=== PATIENT | female | born 1950 | race African-American/Black ===

== ENCOUNTER 2017-08-23 17:01 | Observation (INO) | payer MEDICARE, MEDICAID ==
[~2017-08-23] VITALS: Ht 162.6 cm; Wt 111.0 kg
[~2017-08-23 17:01] MED LIST: AMLO10 PO; CLON.1 PO; DIOV80TA2 PO; MELO15TA2 PO; METO5TAB PO; MONT10TA2 PO; PARO20TA PO; PREM0.622 PO; ROSU20 PO; TEMA15; TOPR25TA2 PO
[2017-08-23 17:15] VITALS: BP 133/79; PULSE 76; RESP 19; TEMP 99.2
[2017-08-23] MEDS ORDERED: methylPREDNISolone SOD SUCC 125 MG/2 ML VIAL IV PUSH ONE (17:30)
[2017-08-23] MEDS ORDERED: SODIUM CHLORIDE 0.9% FLUSH 10 ML FLUSH IVF PRN (17:30)
[2017-08-23] MEDS ORDERED: RESP: ALBUTEROL 2.5 MG/IPRATROPIUM 0.5 MG NEB (SCH) INH ONE (17:30)
[2017-08-23] MEDS: RESP: ALBUTEROL 2.5 MG/3 ML NEB (SCH) INH (17:33)
[2017-08-23 17:34] VITALS: O2SAT 93
--- NOTE | 2017-08-23 17:54 | RADRPT ---
EXAM DATE/TIME: 08/23/2017 17:34 [facility] COMPARISON: No previous studies available for comparison. INDICATIONS : Short of breath. MEDICAL HISTORY : Diabetes mellitus type II. Hypertension SURGICAL HISTORY : None. ENCOUNTER: Initial ACUITY: 1 week PAIN SCORE: 0/10 LOCATION: Bilateral chest FINDINGS: A single view of the chest demonstrates the lungs to be symmetrically aerated without evidence of mas s, infiltrate or effusion. The heart is mildly enlarged. There is prominence of the central broncho pulmonary markings. Moderate tortuosity descending thoracic aorta.. Osseous structures are intact. CONCLUSION: No infiltrates seen. Cardiomegaly. Oscar Wagner MD on August 23, 2017 at 17:52 Board Certified Radiologist. This report was verified electronically.
[2017-08-23 18:34] VITALS: BP 133/79; PULSE 77; RESP 19; O2SAT 89
--- NOTE | 2017-08-23 18:40 | PD ---
HPI Chief Complaint: Respiratory Symptoms Time Seen by Provider: 17:18 Travel History International Travel<30 days: No Contact w/Intl Traveler<30days: No Traveled to known affect area: No History of Present Illness HPI 67 year-old female his hypertension, COPD, presents today with complaints of left sided facial swelling times one day. The patient has had previous angioedema from KVNG inhibitor's. She denies any difficulty swallowing. She does have wheezing and a cough. She reports her cough is productive with yellow and white phlegm. There is no reported fevers, chills. She has no new medications. She was seen initially outfront and rushed back because she had a sat in the high 80s. She was placed on 2 L nasal cannula which brought her O2 sat up into the 90s. The patient is still smoking cigarettes. She reports she' s sneaking them at times. PFSH Past Medical History Arthritis: Yes Asthma: Yes Autoimmune Disease: No Blood Disorders: No Anxiety: Yes Depression: Yes Heart Rhythm Problems: Yes Cancer: No Cardiovascular Problems: Yes Cerebral Palsy: No High Cholesterol: Yes Chemotherapy: No Chest Pain: Yes Congestive Heart Failure: Yes COPD: Yes Cerebrovascular Accident: No Diabetes: Yes Patient Takes Glucophage: No Diminished Hearing: No Endocrine: Yes Gastrointestinal Disorders: No GERD: Yes Glaucoma: No Genitourinary: No Headaches: No Hepatitis: No Hiatal Hernia: No Hypertension: Yes Immune Disorder: No Kidney Stones: No Musculoskeletal: No Neurologic: Yes Psychiatric: Yes Reproductive: No Respiratory: Yes Myocardial Infarction: No Radiation Therapy: No Renal Failure: No Seizures: No Sickle Cell Disease: No Sleep Apnea: No Thyroid Disease: No Ulcer: No Influenza Vaccination: No PNEUMOCCOCAL Vaccine (Year): 2 ?: Not Menopausal: Yes : 5 Para: 5 Past Surgical History Abdominal Surgery: Yes (POLYP REMOVAL) AICD: No Appendectomy: Yes Arteriovenous Shunt: No Cardiac Surgery: No Cholecystectomy: Yes Ear Surgery: No Endocrine Surgery: Yes (DIABETES ) Eye Surgery: Yes (BILAT CATARACT REMOVAL WITH RAHUL. IOL IMPLANTS) Genitourinary Surgery: No Gynecologic Surgery: Yes (HYSTERECTOMY) Hysterectomy: Yes Insulin Pump: No Joint Replacement: No Oral Surgery: No Pacemaker: No Thoracic Surgery: No Other Surgery: Yes Social History Alcohol Use: No Tobacco Use: Yes (1 ppd x 25 years) Substance Use: No Allergies-Medications (Allergen,Severity, Reaction): Coded Allergies: Sulfa (Sulfonamide Antibiotics) (Unverified Allergy, Severe, THROAT SWELLS , HIVES, 05/13/17) acetaminophen (Unverified Allergy, Severe, THROAT SWELLS, HIVES, 05/13/17) benazepril (Unverified Allergy, Severe, ? angioedema, THROAT SWELLS, ) captopril (Unverified Allergy, Severe, ? angioedema, THROAT SWELLS, ) clindamycin (Unverified Allergy, Severe, THROAT SWELLS, HIVES, 05/13/17) codeine (Unverified Allergy, Severe, THROAT SWELLS, HIVES, 05/13/17) enalaprilat (Unverified Allergy, Severe, ? angioedema, THROAT SWELLS, 05/13) fosinopril (Unverified Allergy, Severe, ? angioedema, THROAT SWELLS, ) iodine (Unverified Allergy, Severe, Itching, 05/13/17) lisinopril (Unverified Allergy, Severe, ? angioedema, THROAT SWELLS, ) penicillin G (Unverified Allergy, Severe, THROAT SWELLS, HIVES, 05/13/17) potassium iodide (Unverified Allergy, Severe, Itching, 05/13/17) povidone-iodine (Unverified Allergy, Severe, Itching, 05/13/17) propoxyphene (Unverified Allergy, Severe, THROAT SWELLS, HIVES, 05/13/17) quinapril (Unverified Allergy, Severe, ? angioedema, THROAT SWELLS, ) sodium iodide (Unverified Allergy, Severe, Itching, 05/13/17) sodium iodide (Unverified Allergy, Severe, Itching, 05/13/17) tomato (Unverified Allergy, Severe, THROAT SWELLS, HIVES, 05/13/17) Reported Meds & Prescriptions Reported Meds & Active Scripts Active Reported Restoril 15 mg (Temazepam) 15 Mg Cap 15 Mg .XX HSPRN SLEEP Paroxetine Hcl 20 Mg Tab 20 Mg PO DAILY Crestor (Rosuvastatin Calcium) 20 Mg Tab 20 Mg PO DAILY Premarin (Estrogens Conjugated) 0.625 Mg Tab 0.625 Mg PO DAILY Metoclopramide Hcl (Metoclopramide HCl) 5 Mg Tab 5 Mg PO TID Toprol Xl (Metoprolol Succinate) 25 Mg Tabcr 25 Mg PO DAILY Catapres 0.1 mg (Clonidine HCl) 0.1 Mg Tab 0.1 Mg PO BID Singulair (Montelukast Sodium) 10 Mg Tab 10 Mg PO HS Review of Systems Except as stated in HPI: all other systems reviewed are Neg General / Constitutional: No: Fever, Chills HENT: Positive: Other (reported left sided facial cheek swelling), No: Headaches, Lightheadedness, Neck Pain Cardiovascular: No: Chest Pain or Discomfort, Palpitations Respiratory: Positive: Cough, Shortness of Breath Gastrointestinal: No: Nausea, Vomiting Genitourinary: No: Frequency, Dysuria Musculoskeletal: No: Weakness, Pain Skin: No Rash, No Lesions Neurologic: No: Weakness, Dizziness, Headache Physical Exam Narrative GENERAL: Well-nourished, well-developed patient in mild respiratory discomfort. SKIN: Focused skin assessment warm/dry. HEAD: Normocephalic/atraumatic. ENT: On examination of the patient's face, there is questionable slight swelling to the left cheek. There is no redness or fluctuance. There is no tenderness to palpation. EYES: No scleral icterus. No injection or drainage. NECK: Supple, trachea midline. No JVD or lymphadenopathy. CARDIOVASCULAR: Regular rate and rhythm without murmurs, gallops, or rubs. RESPIRATORY: Diffuse expiratory wheezes bilaterally. No Rales appreciated. GASTROINTESTINAL: Abdomen soft, non-tender, nondistended. MUSCULOSKELETAL: No cyanosis, or edema. NEUROLOGICAL: Awake and alert. Cranial nerves II through XII intact. Motor grossly within normal limits. Five out of 5 muscle strength in all muscle groups. Normal speech. Data Data Last Documented VS Vital Signs Date Time Temp Pulse Resp B/P (MAP) Pulse Ox O2 Delivery O2 Flow Rate FiO2 08/23/17 22:15 96 Nasal Cannula 2.00 08/23/17 20:06 75 18 146/92 (110) 08/23/17 17:15 99.2 Orders Orders Complete Blood Count With Diff (08/23/17 17:18) Comprehensive Metabolic Panel (08/23/17 17:18) D-Dimer (08/23/17 17:18) Troponin I (08/23/17 17:18) Iv Access Insert/Monitor (08/23/17 17:18) Ecg Monitoring (08/23/17 17:18) Oximetry (08/23/17 17:18) Oxygen Administration (08/23/17 17:18) Chest, Single Ap (08/23/17 17:18) Sodium Chloride 0.9% Flush (Ns Flush) (08/23/17 17:30) Methylprednisolone So Succ Inj (Solumedr (08/23/17 17:30) Albuterol-Ipratropium Neb (Duoneb Neb) (08/23/17 17:30) Albuterol Neb (Albuterol Neb) (08/23/17 17:30) Vascular Access Team Consult/P PRN (08/23/17 17:51) Vascular Poc Ultrasound (08/23/17 ) Arterial Blood Gas (Abg) (08/23/17 18:54) Ventilation & Perfusion Scan (08/23/17 ) Albuterol-Ipratropium Neb (Duoneb Neb) (08/23/17 22:00) Levofloxacin 750 Mg Premix Inj (Levaquin (08/23/17 22:30) Admit Order (Ed Use Only) (08/23/17 ) Labs Laboratory Tests Test 08/23/17 18:25 08/23/17 19:20 White Blood Count 7.8 TH/MM3 Red Blood Count 4.76 MIL/MM3 Hemoglobin 15.2 GM/DL Hematocrit 46.2 % Mean Corpuscular Volume 97.0 FL Mean Corpuscular Hemoglobin 31.9 PG Mean Corpuscular Hemoglobin Concent 32.9 % Red Cell Distribution Width 14.7 % Platelet Count 136 TH/MM3 Mean Platelet Volume 9.1 FL Neutrophils (%) (Auto) 40.6 % Lymphocytes (%) (Auto) 32.5 % Monocytes (%) (Auto) 11.3 % Eosinophils (%) (Auto) 14.8 % Basophils (%) (Auto) 0.8 % Neutrophils # (Auto) 3.2 TH/MM3 Lymphocytes # (Auto) 2.5 TH/MM3 Monocytes # (Auto) 0.9 TH/MM3 Eosinophils # (Auto) 1.1 TH/MM3 Basophils # (Auto) 0.1 TH/MM3 CBC Comment DIFF FINAL Differential Comment D-Dimer Quantitative (PE/DVT) 0.82 MG/L FEU Blood Urea Nitrogen 19 MG/DL Creatinine 1.41 MG/DL Random Glucose 96 MG/DL Total Protein 7.4 GM/DL Albumin 3.4 GM/DL Calcium Level 9.6 MG/DL Alkaline Phosphatase 78 U/L Aspartate Amino Transf (AST/SGOT) 22 U/L Alanine Aminotransferase (ALT/SGPT) 21 U/L Total Bilirubin 0.3 MG/DL Sodium Level 140 MEQ/L Potassium Level 4.5 MEQ/L Chloride Level 101 MEQ/L Carbon Dioxide Level 36.9 MEQ/L Anion Gap 2 MEQ/L Estimat Glomerular Filtration Rate 45 ML/MIN Troponin I LESS THAN 0.02 NG/ML Blood Gas Puncture Site LT RADIAL Blood Gas Patient Temperature 37.0 Blood Gas HCO3 34 mmol/L Blood Gas Base Excess 8.7 mmol/L Blood Gas Oxygen Saturation 73 % Arterial Blood pH 7.38 Arterial Blood Partial Pressure CO2 59 mmHg Arterial Blood Partial Pressure O2 42 mmHG Arterial Blood Oxygen Content 15.1 Vol % Arterial Blood Carboxyhemoglobin 6.3 % Arterial Blood Methemoglobin 1.0 % Blood Gas Hemoglobin 14.9 G/DL Oxygen Delivery Device ROOM AIR Blood Gas Inspired Oxygen 21 % MDM Medical Decision Making Medical Screen Exam Complete: Yes Emergency Medical Condition: Yes Differential Diagnosis Angioedema versus allergic reaction versus COPD exacerbation versus pneumonia Narrative Course [age]-old female with history of COPD, hypertension, who presents today with complaints of left sided facial swelling. The patient also has shortness of breath. The patient was given 125 mg of Solu-Medrol. Nebulizer treatments 3 first with Atrovent was ordered. The patient's labs are pending at this time. The patient's been signed out to Dr. Aislinn Mcduffie, physician replacing me at change of shift. Disposition will be per Dr. Mcduffie. Diagnosis Primary Impression: Swelling of left side of face Additional Impression: COPD exacerbation Scripts Nebulizer (Nebulizer) 1 Mis Mis EA .ROUTE DIRECTED for Breathing Treatment, #1 0 Refills Prov: Nicola Marquez MD 08/24/17 Ipratropium-Albuterol Neb (Duoneb) 0.5-2.5 Mg/3 Ml Neb 1 NEBULE INH Q4HR NEB Y for SOB/WHEEZING for 30 Days, #120 NEBULE 0 Refills Prov: Nicola Marquez MD 08/24/17 [Budeson-Formot 160-4.5 Mg Inh] 60 PUFF AERO No Conflict Check 2 PUFF INH Q12HR for copd for 30 Days Prov: Nicola Marquez MD 08/24/17 Prednisone (21) 10 mg tab Dose Pack (Prednisone (21) 10 mg tab Dose Pack) 10 Mg Pack 10 MG PO DIRECTED for Inflammation, #1 DSPK 0 Refills Prov: Nicola Marquez MD 08/24/17 [guaiFENesin ER] 600 MG TABCR No Conflict Check 600 MG PO BID for 5 Days Prov: Nicola Marquez MD 08/24/17 Levofloxacin (Levaquin) 500 Mg Tablet 500 MG PO DAILY for Infection, #5 TAB Prov: Nicola Marquez MD 08/24/17 Azeem Jeff MD Aug 23, 2017 18:40
[2017-08-23 18:42] LABS: AUTOMATED NEUTROPHIL # 3.2 TH/MM3 (1.8-7.7); BASOPHIL # 0.1 TH/MM3 (0-0.2); BASOPHIL % 0.8 % (0.0-2.0); EOSINOPHIL # 1.1 TH/MM3 (0-0.4); EOSINOPHIL % 14.8 % (0.0-4.0); HEMATOCRIT 46.2 % (35.0-46.0); HEMO FLAGS DIFF FINAL; LYMPH % 32.5 % (9.0-44.0); LYMPHOCYTE # 2.5 TH/MM3 (1.0-4.8); MEAN CORPUSCULAR HEMOGLOBIN 31.9 PG (27.0-34.0); MEAN CORPUSCULAR HGB CONC 32.9 % (32.0-36.0); MONO % 11.3 % (0.0-8.0); NEUT % 40.6 % (16.0-70.0); PLATELET COUNT 136 TH/MM3 (150-450); RED BLOOD COUNT 4.76 MIL/MM3 (4.00-5.30); RED CELL DISTRIBUTION WIDTH 14.7 % (11.6-17.2); WHITE BLOOD COUNT 7.8 TH/MM3 (4.0-11.0)
[2017-08-23 19:06] LABS: ANION GAP 2 MEQ/L (5-15); AST (GOT) 22 U/L (15-37); BICARBONATE 36.9 MEQ/L (21.0-32.0); BLOOD UREA NITROGEN 19 MG/DL (7-18); CHLORIDE 101 MEQ/L (98-107); GLOMERULAR FILTRATION RATE 45 ML/MIN (>89); POTASSIUM 4.5 MEQ/L (3.5-5.1); SODIUM (NA) 140 MEQ/L (136-145)
[2017-08-23 19:07] LABS: ALT (GPT) 21 U/L (10-53)
[2017-08-23 19:11] LABS: ALKALINE PHOSPHATASE 78 U/L (45-117); TOTAL BILIRUBIN ADULT 0.3 MG/DL (0.2-1.0)
[2017-08-23 20:06] VITALS: BP 146/92; PULSE 75; RESP 18; O2SAT 93
[2017-08-23 20:22] LABS: BLOOD GAS BASE EXCESS 8.7 mmol/L (-2-2); BLOOD GAS CARBOXYHEMOGLOBIN 6.3 % (0-4); BLOOD GAS HCO3 34 mmol/L (22-26); BLOOD GAS O2 HGB SATURATION 73 % (90-100); BLOOD GAS OXYGEN CONTENT 15.1 Vol % (12.0-20.0); BLOOD GAS PCO2 59 mmHg (38-42); BLOOD GAS PO2 42 mmHG (61-120); BLOOD GAS TOTAL HGB 14.9 G/DL (12.0-16.0)
[2017-08-23 20:23] LABS: CRITICAL VALUE YES; DRAW SITE LT RADIAL; FIO2 21 %; NUMBER OF ARTERIAL PUNCTURES 1; OXYGEN DEVICE ROOM AIR; STAT YES; ULNAR PULSE PRESENT
--- NOTE | 2017-08-23 21:54 | RADRPT ---
EXAM DATE/TIME: 08/23/2017 20:51 [facility] COMPARISON: CHEST SINGLE AP, August 23, 2017, 17:34. INDICATIONS : Dyspnea and cough. DOSE: 1.1 mCi Tc99m DTPA 8.8 mCi Tc99m MAA MEDICAL HISTORY : Chronic obstructive pulmonary disease. Diabetes mellitus type 2. Hypertension. Smoker. SURGICAL HISTORY : Hysterectomy. Cholecystectomy. ENCOUNTER: Initial ACUITY: 1 day PAIN SCALE: 0/10 LOCATION: Bilateral chest TECHNIQUE: Following five minutes of tidal breathing of DTPA aerosol, planar images of the lungs were performed in eight projections. The patient was then injected with MAA, and eight-view perfusion scan was perf ormed. FINDINGS: The ventilation scan demonstrates prominent aerosol deposition in the upper and lower right bronchi a nd the central left bronchi. There is absent ventilation to the left lower lobe lateral basal segmen ts. Subsegmental areas of absent ventilation is seen laterally in left midlung and laterally in the right midlung. The perfusion lung scan demonstrates a homogenous pattern of uptake in both lungs. No segmental or s ubsegmental defects are seen. CONCLUSION: 1. No perfusion defects seen. Low probability pulmonary embolism. 2. Multiple ventilatory defects in both lungs. Oscar Wagner MD on August 23, 2017 at 21:50 Board Certified Radiologist. This report was verified electronically.
[2017-08-23 22:15] VITALS: O2SAT 96
[2017-08-23] MEDS: RESP: ALBUTEROL 2.5 MG/IPRATROPIUM 0.5 MG NEB (SCH) INH (22:15)
--- NOTE | 2017-08-23 22:17 | PD ---
Physical Exam Narrative Patient signed out to me by Dr. Jeff. Please see his documentation for complete details. Briefly, patient came in today because she noticed some swelling under her left eye and was concerned for an allergic reaction. She was found to have a low O2 saturation on arrival. She is a smoker and wears oxygen at home at night only. Exam shows no swelling to the face or mouth. Lungs have diffuse wheezing. Data Data Last Documented VS Vital Signs Date Time Temp Pulse Resp B/P (MAP) Pulse Ox O2 Delivery O2 Flow Rate FiO2 08/23/17 22:15 96 Nasal Cannula 2.00 08/23/17 20:06 75 18 146/92 (110) 08/23/17 17:15 99.2 Orders Orders Complete Blood Count With Diff (08/23/17 17:18) Comprehensive Metabolic Panel (08/23/17 17:18) D-Dimer (08/23/17 17:18) Troponin I (08/23/17 17:18) Iv Access Insert/Monitor (08/23/17 17:18) Ecg Monitoring (08/23/17 17:18) Oximetry (08/23/17 17:18) Oxygen Administration (08/23/17 17:18) Chest, Single Ap (08/23/17 17:18) Sodium Chloride 0.9% Flush (Ns Flush) (08/23/17 17:30) Methylprednisolone So Succ Inj (Solumedr (08/23/17 17:30) Albuterol-Ipratropium Neb (Duoneb Neb) (08/23/17 17:30) Albuterol Neb (Albuterol Neb) (08/23/17 17:30) Vascular Access Team Consult/P PRN (08/23/17 17:51) Vascular Poc Ultrasound (08/23/17 ) Arterial Blood Gas (Abg) (08/23/17 18:54) Ventilation & Perfusion Scan (08/23/17 ) Albuterol-Ipratropium Neb (Duoneb Neb) (08/23/17 22:00) Levofloxacin 750 Mg Premix Inj (Levaquin (08/23/17 22:30) Admit Order (Ed Use Only) (08/23/17 ) Labs Laboratory Tests Test 08/23/17 18:25 08/23/17 19:20 White Blood Count 7.8 TH/MM3 Red Blood Count 4.76 MIL/MM3 Hemoglobin 15.2 GM/DL Hematocrit 46.2 % Mean Corpuscular Volume 97.0 FL Mean Corpuscular Hemoglobin 31.9 PG Mean Corpuscular Hemoglobin Concent 32.9 % Red Cell Distribution Width 14.7 % Platelet Count 136 TH/MM3 Mean Platelet Volume 9.1 FL Neutrophils (%) (Auto) 40.6 % Lymphocytes (%) (Auto) 32.5 % Monocytes (%) (Auto) 11.3 % Eosinophils (%) (Auto) 14.8 % Basophils (%) (Auto) 0.8 % Neutrophils # (Auto) 3.2 TH/MM3 Lymphocytes # (Auto) 2.5 TH/MM3 Monocytes # (Auto) 0.9 TH/MM3 Eosinophils # (Auto) 1.1 TH/MM3 Basophils # (Auto) 0.1 TH/MM3 CBC Comment DIFF FINAL Differential Comment D-Dimer Quantitative (PE/DVT) 0.82 MG/L FEU Blood Urea Nitrogen 19 MG/DL Creatinine 1.41 MG/DL Random Glucose 96 MG/DL Total Protein 7.4 GM/DL Albumin 3.4 GM/DL Calcium Level 9.6 MG/DL Alkaline Phosphatase 78 U/L Aspartate Amino Transf (AST/SGOT) 22 U/L Alanine Aminotransferase (ALT/SGPT) 21 U/L Total Bilirubin 0.3 MG/DL Sodium Level 140 MEQ/L Potassium Level 4.5 MEQ/L Chloride Level 101 MEQ/L Carbon Dioxide Level 36.9 MEQ/L Anion Gap 2 MEQ/L Estimat Glomerular Filtration Rate 45 ML/MIN Troponin I LESS THAN 0.02 NG/ML Blood Gas Puncture Site LT RADIAL Blood Gas Patient Temperature 37.0 Blood Gas HCO3 34 mmol/L Blood Gas Base Excess 8.7 mmol/L Blood Gas Oxygen Saturation 73 % Arterial Blood pH 7.38 Arterial Blood Partial Pressure CO2 59 mmHg Arterial Blood Partial Pressure O2 42 mmHG Arterial Blood Oxygen Content 15.1 Vol % Arterial Blood Carboxyhemoglobin 6.3 % Arterial Blood Methemoglobin 1.0 % Blood Gas Hemoglobin 14.9 G/DL Oxygen Delivery Device ROOM AIR Blood Gas Inspired Oxygen 21 % MDM Supervised Visit with TORIE: No Narrative Course Labs show an elevated d-dimer. VQ scan was performed shows low probability of PE, however there are several areas of the lungs have decreased ventilation. Chest x-ray shows no acute abnormalities. Blood gas shows a low PO2 on room air and high PCO2. Patient given additional DuoNeb nebs. She did receive solumedrol. She will be admitted for further management. Given a dose of antibiotics. Diagnosis Primary Impression: COPD with exacerbation Admitting Information Admitting Physician Requests: Aislinn Smith MD Aug 23, 2017 22:17
[2017-08-23] MEDS ORDERED: LEVOFLOXACIN 750 MG PREMIX INJ 150 ML IV ONE (22:30)
--- NOTE | 2017-08-23 22:38 | HHI.HP ---
HPI Service [facility] Primary Care Physician Julian Padilla, Admission Diagnosis COPD exacerbation Diagnoses: (1) COPD (chronic obstructive pulmonary disease) Diagnosis: Principal (2) Renal insufficiency Diagnosis: Principal (3) HTN (hypertension) Diagnosis: Principal (4) Thrombocytopenia (5) Tobacco abuse Diagnosis: Principal Travel History International Travel<30 Days: No Contact w/Intl Traveler <30 Da: No Traveled to Known Affected Are: No History of Present Illness This is a 67-year-old female with a PMH of Anxiety, Depression, HTN, Hyperlipidemia, COPD and Tobacco Abuse who presented to the ER initially with complaints of left-sided facial swelling w/ associated itching starting earlier tonight. On arrival, noted to have O2 sat 89% w/ wheezing. Upon further questioning, pt does report SOB and productive cough w/ yellow-colored sputum. Denies fever, chills or chest pain. BP 146/92, HR 75, O2 sat currently 93% on 2L NC, Temp 99.2. CBC essentially unremarkable except for platelets 136, previously 161 on 10/22/11. Creatinine 1.41, previously 1.30 on 10/23/11. Troponin negative. D-dimer 0.82. CXR with no acute infiltrates. VQ scan with no perfusion defects, low probability PE, multiple ventilatory defects bilaterally. S/p DuoNeb and Solu-Medrol in ER. Review of Systems Except as stated in HPI: all other systems reviewed are Neg ROS: 14 point review of systems otherwise negative. Past Family Social History Past Medical History PMH: Anxiety, Depression, HTN, Hyperlipidemia, COPD and Tobacco Abuse Past Surgical History PAST SURGICAL HISTORY: Cholecystectomy, Bilateral Cataract Surgery, Hysterectomy Allergies: Coded Allergies: Sulfa (Sulfonamide Antibiotics) (Unverified Allergy, Severe, THROAT SWELLS , HIVES, 05/13/17) acetaminophen (Unverified Allergy, Severe, THROAT SWELLS, HIVES, 05/13/17) benazepril (Unverified Allergy, Severe, ? angioedema, THROAT SWELLS, ) captopril (Unverified Allergy, Severe, ? angioedema, THROAT SWELLS, ) clindamycin (Unverified Allergy, Severe, THROAT SWELLS, HIVES, 05/13/17) codeine (Unverified Allergy, Severe, THROAT SWELLS, HIVES, 05/13/17) enalaprilat (Unverified Allergy, Severe, ? angioedema, THROAT SWELLS, 05/13) fosinopril (Unverified Allergy, Severe, ? angioedema, THROAT SWELLS, ) iodine (Unverified Allergy, Severe, Itching, 05/13/17) lisinopril (Unverified Allergy, Severe, ? angioedema, THROAT SWELLS, ) penicillin G (Unverified Allergy, Severe, THROAT SWELLS, HIVES, 05/13/17) potassium iodide (Unverified Allergy, Severe, Itching, 05/13/17) povidone-iodine (Unverified Allergy, Severe, Itching, 05/13/17) propoxyphene (Unverified Allergy, Severe, THROAT SWELLS, HIVES, 05/13/17) quinapril (Unverified Allergy, Severe, ? angioedema, THROAT SWELLS, ) sodium iodide (Unverified Allergy, Severe, Itching, 05/13/17) sodium iodide (Unverified Allergy, Severe, Itching, 05/13/17) tomato (Unverified Allergy, Severe, THROAT SWELLS, HIVES, 05/13/17) Family History PAST FAMILY HISTORY: Reviewed. No h/o DM or CAD Social History PAST SOCIAL HISTORY: Negative for alcohol or drugs. Smokes 1ppd. Physical Exam Vital Signs Vital Signs Date Time Temp Pulse Resp B/P (MAP) Pulse Ox O2 Delivery O2 Flow Rate FiO2 08/23/17 22:15 96 Nasal Cannula 2.00 08/23/17 20:06 75 18 146/92 (110) 93 Nasal Cannula 2.00 08/23/17 18:34 77 19 133/79 (97) 89 Nasal Cannula 2.00 08/23/17 17:34 93 Nasal Cannula 2.00 08/23/17 17:26 92 Nasal Cannula 1.00 08/23/17 17:19 77 92 Nasal Cannula 1.00 08/23/17 17:15 99.2 76 19 133/79 (97) Physical Exam PE: GENERAL: Extremely pleasant middle-aged black female in no acute distress. Daughter at bedside. HEENT: PERRLA, EOMI. No scleral icterus or conjunctival pallor. No lid lag or facial droop. No obvious left-sided facial swelling. CARDIOVASCULAR: Regular rate and rhythm. No obvious murmurs to auscultation. No chest tenderness to palpation. RESPIRATORY: No obvious rhonchi. Occasional wheezing. Clear to auscultation. Breath sounds equal bilaterally. GASTROINTESTINAL: Abdomen soft, non-tender, nondistended. BS normal. MUSCULOSKELETAL: Extremities without clubbing, cyanosis, or edema. No obvious deformities. NEUROLOGICAL: Awake, alert and oriented x4. No focal neurologic deficits. Moving both upper and lower extremities spontaneously. Laboratory Laboratory Tests Test 08/23/17 18:25 08/23/17 19:20 White Blood Count 7.8 Red Blood Count 4.76 Hemoglobin 15.2 Hematocrit 46.2 Mean Corpuscular Volume 97.0 Mean Corpuscular Hemoglobin 31.9 Mean Corpuscular Hemoglobin Concent 32.9 Red Cell Distribution Width 14.7 Platelet Count 136 Mean Platelet Volume 9.1 Neutrophils (%) (Auto) 40.6 Lymphocytes (%) (Auto) 32.5 Monocytes (%) (Auto) 11.3 Eosinophils (%) (Auto) 14.8 Basophils (%) (Auto) 0.8 Neutrophils # (Auto) 3.2 Lymphocytes # (Auto) 2.5 Monocytes # (Auto) 0.9 Eosinophils # (Auto) 1.1 Basophils # (Auto) 0.1 CBC Comment DIFF FINAL Differential Comment D-Dimer Quantitative (PE/DVT) 0.82 Blood Urea Nitrogen 19 Creatinine 1.41 Random Glucose 96 Total Protein 7.4 Albumin 3.4 Calcium Level 9.6 Alkaline Phosphatase 78 Aspartate Amino Transf (AST/SGOT) 22 Alanine Aminotransferase (ALT/SGPT) 21 Total Bilirubin 0.3 Sodium Level 140 Potassium Level 4.5 Chloride Level 101 Carbon Dioxide Level 36.9 Anion Gap 2 Estimat Glomerular Filtration Rate 45 Troponin I LESS THAN 0.02 Blood Gas Puncture Site LT RADIAL Blood Gas Patient Temperature 37.0 Blood Gas HCO3 34 Blood Gas Base Excess 8.7 Blood Gas Oxygen Saturation 73 Arterial Blood pH 7.38 Arterial Blood Partial Pressure CO2 59 Arterial Blood Partial Pressure O2 42 Arterial Blood Oxygen Content 15.1 Arterial Blood Carboxyhemoglobin 6.3 Arterial Blood Methemoglobin 1.0 Blood Gas Hemoglobin 14.9 Oxygen Delivery Device ROOM AIR Blood Gas Inspired Oxygen 21 Result Diagram: 08/23/17182408/23/171824 [facility] VTE Risk Assessment Caprin VTE Risk Assessment: Mod/High Risk (score >= 2) Caprini Risk Assessment Model Point Value = 1 Point Value = 2 Point Value = 3 Point Value = 5 Age 41-60 Minor surgery BMI > 25 kg/m2 Swollen legs Varicose veins or History of unexplained or recurrent spontaneous Oral contraceptives or hormone replacement Sepsis (< 1 month) Serious lung disease, including pneumonia (< 1 month) Abnormal pulmonary function Acute myocardial infarction Congestive heart failure (< 1 month) History of inflammatory bowel disease Medical patient at bed rest Age 61-74 Arthroscopic surgery Major open surgery (> 45 min) Laparoscopic surgery (> 45 min) Malignancy Confined to bed (> 72 hours) Immobilizing plaster cast Central venous access Age >= 75 History of VTE Family history of VTE Factor V Leiden Prothrombin 20810A Lupus anticoagulant Anticardiolipin antibodies Elevated serum homocysteine Heparin-induced thrombocytopenia Other congenital or acquired thrombophilia Stroke (< 1 month) Elective arthroplasty Hip, pelvis, or leg fracture Acute spinal cord injury (< 1 month) Prophylaxis Regimen Total Risk Factor Score Risk Level Prophylaxis Regimen 0-1 Low Early ambulation 2 Moderate Order ONE of the following: *Sequential Compression Device (SCD) *Heparin 5000 units SQ BID 3-4 Higher Order ONE of the following medications: *Heparin 5000 units SQ TID *Enoxaparin/Lovenox 40 mg SQ daily (WT < 150 kg, CrCl > 30 mL/min) *Enoxaparin/Lovenox 30 mg SQ daily (WT < 150 kg, CrCl > 10-29 mL/min) *Enoxaparin/Lovenox 30 mg SQ BID (WT < 150 kg, CrCl > 30 mL/min) AND/OR *Sequential Compression Device (SCD) 5 or more Highest Order ONE of the following medications: *Heparin 5000 units SQ TID (Preferred with Epidurals) *Enoxaparin/Lovenox 40 mg SQ daily (WT < 150 kg, CrCl > 30 mL/min) *Enoxaparin/Lovenox 30 mg SQ daily (WT < 150 kg, CrCl > 10-29 mL/min) *Enoxaparin/Lovenox 30 mg SQ BID (WT < 150 kg, CrCl > 30 mL/min) AND *Sequential Compression Device (SCD) Assessment and Plan Problem List: (1) COPD (chronic obstructive pulmonary disease) ICD Code: J44.9 - Chronic obstructive pulmonary disease, unspecified (2) Renal insufficiency ICD Code: N28.9 - Disorder of kidney and ureter, unspecified (3) Thrombocytopenia ICD Code: D69.6 - Thrombocytopenia, unspecified (4) HTN (hypertension) ICD Code: I10 - Essential (primary) hypertension (5) Tobacco abuse ICD Code: Z72.0 - Tobacco use Assessment and Plan A/P: 1. COPD: Chronic Respiratory Failure w/ Acute Exacerbation. Moderate. + wheezing/SOB. O2 sat 89% upon arrival, currently 96% on 3L NC. CXR w/ no acute findings. V/Q low probability for PE, multiple ventilatory defects, images reviewed by me. Continue Solu-Medrol, DuoNeb q4h and q2h prn, Symbicort , Mucinex, resume Singulair. 2. Renal Insufficiency: Creatinine 1.41, previously 1.30 on 10/23/11. Will monitor, repeat labs in am. 3. Thrombocytopenia: Platelets 136, previously 161 on 10/22/11. No active bleeding, will repeat labs in am. 4. HTN: Well controlled. BP 120's systolic. Resume home medications, monitor BP. 5. Tobacco Abuse: Pt counselled. NicoDerm prn if needed. 6. DVT Prophylaxis: Heparin sq 7. Social work for d/c planning as needed. 8. Case discussed w/ ER physician at length. Mary Kay Groves MD Aug 23, 2017 22:38
[2017-08-23] MEDS ORDERED: BISACODYL 10 MG SUPP RECTAL PRN (22:45)
[2017-08-23] MEDS ORDERED: ONDANSETRON HCL 4 MG/2 ML VIAL IVP PRN (22:45)
[2017-08-23] MEDS ORDERED: MAGNESIUM HYDROXIDE SUSP 30 ML CUP PO PRN (22:45)
[2017-08-23] MEDS ORDERED: SENNOSIDES 8.6 MG TAB PO PRN (22:45)
[2017-08-23] MEDS ORDERED: LACTULOSE SYRUP 20 GM/30 ML CUP PO PRN (22:45)
[2017-08-23] MEDS ORDERED: SODIUM CHLORIDE 0.9% FLUSH 10 ML FLUSH IV FLUSH PRN (22:45)
[2017-08-23] MEDS ORDERED: RESP: ALBUTEROL 2.5 MG/IPRATROPIUM 0.5 MG NEB (PRN) NEB (22:45)
[2017-08-23 23:55] VITALS: BP 151/70; PULSE 78; RESP 18; TEMP 98.5; O2SAT 97
[2017-08-24] MEDS ORDERED: CELE1CAP8 PO (00:02)
[2017-08-24] MEDS ORDERED: POTA-163 PO (00:04)
[2017-08-24] MEDS ORDERED: GABA300C5 PO (00:04)
[2017-08-24] MEDS ORDERED: CANA300T PO (00:05)
[2017-08-24] MEDS ORDERED: LYRI100C PO (00:06)
[2017-08-24] MEDS ORDERED: FURO40TA PO (00:07)
[2017-08-24] MEDS ORDERED: TRAD5TAB PO (00:08)
[2017-08-24] MEDS: methylPREDNISolone SOD SUCC 40 MG/1 ML VIAL IV PUSH SCH ×2 (00:44→06:42)
[2017-08-24 04:14] LABS: AUTOMATED NEUTROPHIL # 5.7 TH/MM3 (1.8-7.7); BASOPHIL % 0.3 % (0.0-2.0); EOSINOPHIL % 0.1 % (0.0-4.0); HEMATOCRIT 46.8 % (35.0-46.0); HEMO FLAGS DIFF FINAL; LYMPH % 6.6 % (9.0-44.0); LYMPHOCYTE # 0.4 TH/MM3 (1.0-4.8); MEAN CELL VOLUME 98.1 FL (80.0-100.0); MEAN CORPUSCULAR HEMOGLOBIN 32.2 PG (27.0-34.0); MEAN CORPUSCULAR HGB CONC 32.8 % (32.0-36.0); MONO % 0.8 % (0.0-8.0); NEUT % 92.2 % (16.0-70.0); PLATELET COUNT 124 TH/MM3 (150-450); RED BLOOD COUNT 4.77 MIL/MM3 (4.00-5.30); RED CELL DISTRIBUTION WIDTH 14.8 % (11.6-17.2); WHITE BLOOD COUNT 6.2 TH/MM3 (4.0-11.0)
[2017-08-24 05:07] LABS: ALKALINE PHOSPHATASE 78 U/L (45-117); ALT (GPT) 21 U/L (10-53); ANION GAP 8 MEQ/L (5-15); AST (GOT) 17 U/L (15-37); BICARBONATE 31.4 MEQ/L (21.0-32.0); BLOOD UREA NITROGEN 21 MG/DL (7-18); CHLORIDE 100 MEQ/L (98-107); GLOMERULAR FILTRATION RATE 46 ML/MIN (>89); POTASSIUM 4.7 MEQ/L (3.5-5.1); SODIUM (NA) 139 MEQ/L (136-145); TOTAL BILIRUBIN ADULT 0.2 MG/DL (0.2-1.0)
[2017-08-24] MEDS: RESP: ALBUTEROL 2.5 MG/IPRATROPIUM 0.5 MG NEB (SCH) NEB ×2 (07:22→11:08)
[2017-08-24] MEDS ORDERED: DEXTROSE 50% IN WATER 50 ML VIAL(D50) IV PUSH PRN (07:30)
[2017-08-24] MEDS ORDERED: GLUCAGON 1 MG/ML VIAL OTHER PRN (07:30)
[2017-08-24] MEDS: INSULIN ASPART SUPPLEMENTAL SCALE SQ SCH ×2 (08:00→12:52)
[2017-08-24 08:12] VITALS: BP 180/96; PULSE 96; RESP 20; TEMP 97.9; O2SAT 96
[2017-08-24] MEDS ORDERED: PREGABALIN 100 MG CAP PO SCH (09:00)
[2017-08-24] MEDS ORDERED: cloNIDine HCL 0.1 MG TAB PO SCH (09:00)
[2017-08-24] MEDS ORDERED: guaiFENesin E.R. 600 MG TAB PO SCH (09:00)
[2017-08-24] MEDS ORDERED: TRADJENTA 5 MG PO SCH (09:00)
[2017-08-24] MEDS ORDERED: PNEUMOCOCCAL POLYVALENT INJ 25 MCG/0.5 ML SYR IM ONE (09:00)
[2017-08-24] MEDS ORDERED: INVOKANA 300 MG PO SCH (09:00)
[2017-08-24] MEDS ORDERED: PARoxetine HCL 20 MG TAB PO SCH (09:00)
[2017-08-24] MEDS ORDERED: BUDESONIDE-FORMOTEROL 160/4.5 MCG INHALER INH SCH (09:00)
[2017-08-24] MEDS ORDERED: ESTROGENS CONJUGATED 0.625 MG TAB PO SCH (09:00)
[2017-08-24] MEDS ORDERED: HEPARIN SODIUM - SQ 10,000 UNITS/ML VIAL SQ SCH (09:00)
[2017-08-24] MEDS ORDERED: SODIUM CHLORIDE 0.9% FLUSH 10 ML FLUSH IV FLUSH SCH (09:00)
[2017-08-24] MEDS ORDERED: DOCUSATE SODIUM 50 MG/SENNA 8.6 MG TAB PO SCH (09:00)
[2017-08-24] MEDS ORDERED: METOPROLOL SUCCINATE 25 MG EXTENDED RELEASE TAB PO SCH (09:00)
[2017-08-24] MEDS ORDERED: INFLUENZA VIRUS VACCINE (QUADRIVALENT) 0.5 ML SYR IM ONE (09:00)
[2017-08-24] MEDS ORDERED: FUROSEMIDE 40 MG TAB PO SCH (09:00)
[2017-08-24] MEDS ORDERED: ATORVASTATIN 40 MG TAB PO SCH (09:00)
[2017-08-24] MEDS: METOCLOPRAMIDE HCL 10 MG TAB PO SCH ×2 (09:15→12:52)
[2017-08-24] MEDS: GABAPENTIN 300 MG CAP PO SCH ×2 (09:15→12:52)
[2017-08-24] MEDS ORDERED: LEVOFLOXACIN 500 MG TAB PO ONE (09:30)
--- NOTE | 2017-08-24 09:32 | HHI.PR ---
Subjective Remarks Says she is feeling much better today. Feels like she might be able to go home. Denies any chest pain or report shortness of breath is back to baseline. She does report sinus congestion, with left maxillary sinus discomfort prior to admission which has resolved after antibiotics. Objective Vital Signs Date Time Temp Pulse Resp B/P (MAP) Pulse Ox O2 Delivery O2 Flow Rate FiO2 08/24/17 08:12 97.9 96 20 180/96 (124) 96 08/24/17 07:26 Nasal Cannula 2.50 08/23/17 23:55 98.5 78 18 151/70 (97) 97 08/23/17 22:15 96 Nasal Cannula 2.00 08/23/17 20:06 75 18 146/92 (110) 93 Nasal Cannula 2.00 08/23/17 18:34 77 19 133/79 (97) 89 Nasal Cannula 2.00 08/23/17 17:34 93 Nasal Cannula 2.00 08/23/17 17:26 92 Nasal Cannula 1.00 08/23/17 17:19 77 92 Nasal Cannula 1.00 08/23/17 17:15 99.2 76 19 133/79 (97) I/O 08/23/17 08/23/17 08/23/17 08/24/17 08/24/17 08/24/17 07:00 15:00 23:00 07:00 15:00 23:00 Intake Total 200 ml Balance 200 ml Intake Oral 200 ml Result Diagram: 08/24/1730908/24/17309 Objective Remarks GENERAL: Sitting up in bed. Appears comfortable. Alert and oriented 3. SKIN: Warm and dry. HEAD: Normocephalic. EYES: No scleral icterus. No injection or drainage. NECK: Supple, trachea midline. No JVD or lymphadenopathy. CARDIOVASCULAR: Regular rate and rhythm without murmurs, gallops, or rubs. RESPIRATORY: Breath sounds equal bilaterally. No accessory muscle use. GASTROINTESTINAL: Abdomen soft, non-tender, nondistended. MUSCULOSKELETAL: No cyanosis, or edema. BACK: Nontender without obvious deformity. No CVA tenderness. A/P Assessment and Plan //COPD: Chronic Respiratory Failure w/ Acute Exacerbation. Moderate. + wheezing/SOB. O2 sat 89% upon arrival, currently 96% on 3L NC. CXR w/ no acute findings. V/Q low probability for PE, multiple ventilatory defects, images reviewed by me. Continue Solu-Medrol, DuoNeb q4h and q2h prn. = Much improved. Switched to prednisone, continue Levaquin as patient reports having symptoms of sinus infection prior to admission, currently resolved after antibiotics. Tracey del angel. // Renal Insufficiency: Creatinine 1.41, previously 1.30 on 10/23/11. = Improved slightly creatinine 1.37. //Hypertension. Systolic blood pressure in the 180s. Likely secondary to steroids, as well as missing nighttime dose of clonidine yesterday. she'll be getting clonidine today.. Will decrease steroids to prednisone. //Diabetes mellitus. Continue home medications. Glucose up to 200 secondary to steroids. We will wean steroids. Expect to improve // Thrombocytopenia: Platelets 136, previously 161 on 10/22/11. No active bleeding, will repeat labs in am. = Platelets 124. Relatively stable. //Tobacco Abuse: Pt counselled. NicoDerm prn if needed. //DVT Prophylaxis: Heparin sq Discharge Planning Possibly discharge home this afternoon if continues to do well Nicola Marquez MD Aug 24, 2017 09:32
[2017-08-24] MEDS ORDERED: IPRASOL INH (09:43)
[2017-08-24] MEDS ORDERED: PRED10PA PO (09:43)
[2017-08-24] MEDS ORDERED: LEVA500T33 PO (09:43)
[2017-08-24] MEDS ORDERED: Budeson-Formot 160-4.5 Mg Inh INH (09:43)
[2017-08-24] MEDS ORDERED: guaiFENesin ER PO (09:43)
[2017-08-24] MEDS ORDERED: NEBULIZER1 MI1 (09:46)
[2017-08-24] MEDS ORDERED: predniSONE 50 MG TAB PO SCH (10:00)
[2017-08-24 12:14] VITALS: BP 146/89; PULSE 90; RESP 18; TEMP 97.9; O2SAT 96
[2017-08-24] MEDS ORDERED: MONTELUKAST SODIUM 10 MG TAB PO SCH (21:00)
[2017-08-25] MEDS ORDERED: LEVOFLOXACIN 500 MG TAB PO SCH (09:00)
== END 2017-08-24 14:31 | disposition home or self-care (01) ==
LOC: NEPC 17:01 → NEDA 22:26 → NEPFCDU 23:08
PROVIDERS: ADMIT Internal Medicine; ATTEND Internal Medicine
DX: J44.1 Chronic obstructive pulmonary disease with (acute) exacerbation (principal); N28.9 Disorder of kidney and ureter, unspecified; I50.9 Heart failure, unspecified; I11.0 Hypertensive heart disease with heart failure; D69.6 Thrombocytopenia, unspecified; J96.20 Acute and chronic respiratory failure, unspecified whether with hypoxia or hypercapnia; F17.210 Nicotine dependence, cigarettes, uncomplicated; M19.90 Unspecified osteoarthritis, unspecified site; F41.9 Anxiety disorder, unspecified; F32.9 Major depressive disorder, single episode, unspecified; E78.00 Pure hypercholesterolemia, unspecified; R07.9 Chest pain, unspecified; E11.9 Type 2 diabetes mellitus without complications; K21.9 Gastro-esophageal reflux disease without esophagitis; Z79.899 Other long term (current) drug therapy; Z99.81 Dependence on supplemental oxygen; R79.1 Abnormal coagulation profile; Z79.84 Long term (current) use of oral hypoglycemic drugs
CPT/HCPCS: 36600; 71010; 78582; 80053; 82805; 82948; 83880; 84484; 85025; 85379; 94640; 94664; 96365; 96372; 96375; 96376; 97161; 99285; A9540; A9567; G0378; G8987; G8988; J1644; J1815; J1956; J2920; J2930; J7512; J7613

== ENCOUNTER 2018-01-04 13:36 | Inpatient (IN) | payer OTHER, MEDICARE ==
[~2018-01-04] VITALS: Ht 160 cm; Wt 116.9 kg
[~2018-01-04 13:36] MED LIST changes: -AMLO10 PO; +Budeson-Formot 160-4.5 Mg Inh INH; +CANA300T PO; -DIOV80TA2 PO; +FURO40TA PO; +GABA300C5 PO; +IPRASOL INH; +LEVA500T33 PO; +LYRI100C PO; -MELO15TA2 PO; +NEBULIZER1 MI1; +POTA-163 PO; +PRED10PA PO; +TRAD5TAB PO; +guaiFENesin ER PO
[2018-01-04 13:51] VITALS: BP 114/67; PULSE 149; RESP 22; TEMP 98.7; O2SAT 100
[2018-01-04] MEDS ORDERED: SODIUM CHLORIDE 0.9% FLUSH 10 ML FLUSH IVF PRN (14:00)
[2018-01-04 14:10] VITALS: BP 131/77; PULSE 84; RESP 18; O2SAT 98
--- NOTE | 2018-01-04 14:11 | PD ---
HPI Chief Complaint: Cold / Flu Symptoms Time Seen by Provider: 14:24 Travel History International Travel<30 days: No Contact w/Intl Traveler<30days: No Traveled to known affect area: No History of Present Illness HPI 67-year-old female with PMH of COPD, CHF, DM, HTN presents to the ED for evaluation of 4 day history of worsening cough, wheezing and shortness of breath. Patient endorses pleuritic type chest pain. She denies fevers, chills , sinus congestion, rhinorrhea, palpitations, abdominal pain, nausea, vomiting, increased edema in the lower extremities. Her daughter is at bedside and helps provide the history. She states that she has been administering albuterol nebulizers every 4 hours, last treatment approximately 1 hour ago. She states that the patient's blood sugars have been consistently under 200 in the last week or so. Patient did not receive this years flu vaccine. She is a current smoker. The patient is followed by Dr. Padilla. [facility] Past Medical History Arthritis: Yes Asthma: No Autoimmune Disease: No Blood Disorders: No Anxiety: No Depression: No Heart Rhythm Problems: No (copd) Cancer: No Cardiovascular Problems: No Cerebral Palsy: No High Cholesterol: No Chemotherapy: No Chest Pain: No Congestive Heart Failure: No COPD: Yes Cerebrovascular Accident: No Diabetes: No Diminished Hearing: No Endocrine: No Gastrointestinal Disorders: No GERD: Yes Glaucoma: No Genitourinary: No Headaches: No Hepatitis: No Hiatal Hernia: No Hypertension: Yes Immune Disorder: No Kidney Stones: No Musculoskeletal: No Neurologic: No Psychiatric: No Reproductive: No Respiratory: Yes (copd edema) Myocardial Infarction: No Radiation Therapy: No Renal Failure: No Seizures: No Sickle Cell Disease: No Sleep Apnea: No Thyroid Disease: No Ulcer: No PNEUMOCCOCAL Vaccine (Year): 2 Menopausal: Yes : 5 Para: 5 Past Surgical History Abdominal Surgery: Yes (POLYP REMOVAL) AICD: No Appendectomy: Yes Arteriovenous Shunt: No Cardiac Surgery: No Cholecystectomy: Yes Ear Surgery: No Endocrine Surgery: Yes (DIABETES ) Eye Surgery: Yes (BILAT CATARACT REMOVAL WITH RAHUL. IOL IMPLANTS) Genitourinary Surgery: No Gynecologic Surgery: Yes (HYSTERECTOMY) Hysterectomy: Yes Insulin Pump: No Joint Replacement: No Oral Surgery: No Pacemaker: No Thoracic Surgery: No Other Surgery: Yes Social History Alcohol Use: No Tobacco Use: Yes (1 ppd x 25 years) Substance Use: No Allergies-Medications (Allergen,Severity, Reaction): Coded Allergies: Sulfa (Sulfonamide Antibiotics) (Unverified Allergy, Severe, THROAT SWELLS , HIVES, 05/13/17) acetaminophen (Unverified Allergy, Severe, THROAT SWELLS, HIVES, 05/13/17) benazepril (Unverified Allergy, Severe, ? angioedema, THROAT SWELLS, ) captopril (Unverified Allergy, Severe, ? angioedema, THROAT SWELLS, ) clindamycin (Unverified Allergy, Severe, THROAT SWELLS, HIVES, 05/13/17) codeine (Unverified Allergy, Severe, THROAT SWELLS, HIVES, 05/13/17) enalaprilat (Unverified Allergy, Severe, ? angioedema, THROAT SWELLS, 05/13) fosinopril (Unverified Allergy, Severe, ? angioedema, THROAT SWELLS, ) iodine (Unverified Allergy, Severe, Itching, 05/13/17) lisinopril (Unverified Allergy, Severe, ? angioedema, THROAT SWELLS, ) penicillin G (Unverified Allergy, Severe, THROAT SWELLS, HIVES, 05/13/17) potassium iodide (Unverified Allergy, Severe, Itching, 05/13/17) povidone-iodine (Unverified Allergy, Severe, Itching, 05/13/17) propoxyphene (Unverified Allergy, Severe, THROAT SWELLS, HIVES, 05/13/17) quinapril (Unverified Allergy, Severe, ? angioedema, THROAT SWELLS, ) sodium iodide (Unverified Allergy, Severe, Itching, 05/13/17) sodium iodide (Unverified Allergy, Severe, Itching, 05/13/17) tomato (Unverified Allergy, Severe, THROAT SWELLS, HIVES, 05/13/17) Reported Meds & Prescriptions Reported Meds & Active Scripts Active Reported Proair Hfa 8.5 GM Inh (Albuterol Sulfate) 90 Mcg/Act Aer 2 Puff INH Q4-6H PRN 108 mcg/actuation Spiriva Handihaler (Tiotropium Inh) 18 Mcg Cap 18 Mcg INH DAILY 1 capsule = 18 mcg Breo Ellipta Inh (Fluticasone/Vilanterol) 200-25 Mcg/Act Inh 1 Puff INH DAILY Use daily at the same time. Clonidine (Clonidine HCl) 0.1 Mg Tab 0.1 Mg PO BID Montelukast (Montelukast Sodium) 10 Mg Tab 10 Mg PO HS Hydrocodone-Acetaminophen 10-325 mg Tab 1 Tab PO TID PRN Rosuvastatin (Rosuvastatin Calcium) 5 Mg Tab 5 Mg PO DAILY Paroxetine (Paroxetine HCl) 20 Mg Tab 20 Mg PO DAILY Metoprolol Tartrate 25 Mg Tab 25 Mg PO DAILY Metoclopramide (Metoclopramide HCl) 5 Mg Tab 5 Mg PO TIDAC Tradjenta (Linagliptin) 5 Mg Tab 5 Mg PO DAILY Furosemide 40 Mg Tab 40 Mg PO DAILY Lyrica (Pregabalin) 100 Mg Cap 100 Mg PO BID Invokana (Canagliflozin) 300 Mg Tab 300 Mg PO DAILY Take before 1st meal of day. Potassium Chloride ER (Potassium Chloride) 20 Meq Tab 20 Meq PO DAILY Review of Systems Except as stated in HPI: all other systems reviewed are Neg Physical Exam Narrative GENERAL: Well-nourished, well-developed obese -Turkmen female no acute distress. SKIN: Focused skin assessment warm/dry. HEAD: Normocephalic. EYES: No scleral icterus. No injection or drainage. NECK: Supple, trachea midline. No JVD or lymphadenopathy. CARDIOVASCULAR: Regular rate and rhythm without murmurs, gallops, or rubs. RESPIRATORY: Audible wheezing at bedside. Positive accessory muscle use. Wet sounding cough. GASTROINTESTINAL: Abdomen soft, non-tender, nondistended. MUSCULOSKELETAL: No cyanosis. Trace edema in bilateral lower extremities. BACK: Nontender without obvious deformity. No CVA tenderness. Data Data Last Documented VS Vital Signs Date Time Temp Pulse Resp B/P (MAP) Pulse Ox O2 Delivery O2 Flow Rate FiO2 01/04/18 14:10 84 18 131/77 (95) 98 Nasal Cannula 2.00 01/04/18 13:51 98.7 Orders Orders Complete Blood Count With Diff (01/04/18 13:57) Comprehensive Metabolic Panel (01/04/18 13:57) B-Type Natriuretic Peptide (01/04/18 13:57) Act Partial Throm Time (Ptt) (01/04/18 13:57) Prothrombin Time / Inr (Pt) (01/04/18 13:57) Magnesium (Mg) (01/04/18 13:57) Ckmb (Isoenzyme) Profile (01/04/18 13:57) Troponin I (01/04/18 13:57) Urinalysis - C+S If Indicated (01/04/18 13:57) Influenzae A/B Antigen (01/04/18 13:57) Iv Access Insert/Monitor (01/04/18 13:57) Electrocardiogram (01/04/18 13:57) Ecg Monitoring (01/04/18 13:57) Oximetry (01/04/18 13:57) Oxygen Administration (01/04/18 13:57) Chest, Single Ap (01/04/18 13:57) Sodium Chloride 0.9% Flush (Ns Flush) (01/04/18 14:00) Methylprednisolone So Succ Inj (Solumedr (01/04/18 14:15) Albuterol-Ipratropium Neb (Duoneb Neb) (01/04/18 14:15) Blood Glucose (01/04/18 14:04) Nicotine 21 Mg Patch.24 Hr (Habitrol 21 (01/04/18 15:45) Admit Order (Ed Use Only) (01/04/18 15:35) Labs Laboratory Tests Test 01/04/18 13:41 White Blood Count 7.8 TH/MM3 Red Blood Count 4.01 MIL/MM3 Hemoglobin 13.1 GM/DL Hematocrit 39.2 % Mean Corpuscular Volume 97.6 FL Mean Corpuscular Hemoglobin 32.7 PG Mean Corpuscular Hemoglobin Concent 33.5 % Red Cell Distribution Width 14.2 % Platelet Count 127 TH/MM3 Mean Platelet Volume 10.0 FL Neutrophils (%) (Auto) 60.4 % Lymphocytes (%) (Auto) 18.8 % Monocytes (%) (Auto) 9.5 % Eosinophils (%) (Auto) 10.3 % Basophils (%) (Auto) 1.0 % Neutrophils # (Auto) 4.7 TH/MM3 Lymphocytes # (Auto) 1.5 TH/MM3 Monocytes # (Auto) 0.7 TH/MM3 Eosinophils # (Auto) 0.8 TH/MM3 Basophils # (Auto) 0.1 TH/MM3 CBC Comment DIFF FINAL Differential Comment Prothrombin Time 10.3 SEC Prothromb Time International Ratio 1.0 RATIO Activated Partial Thromboplast Time 24.3 SEC B-Type Natriuretic Peptide 10 PG/ML MDM Medical Decision Making Medical Screen Exam Complete: Yes Emergency Medical Condition: Yes Differential Diagnosis CHF exacerbation versus COPD exacerbation versus pneumonia versus influenza versus other Narrative Course 67-year-old female with PMH of COPD, CHF, DM, HTN presents to the ED for evaluation of 4 day history of worsening cough, wheezing and shortness of breath. Patient endorses pleuritic type chest pain. She has been administering albuterol nebulizers every 4 hours, last treatment approximately 1 hour ago. Current smoker. On arrival patient's afebrile, pulse 90, O2 sats 100%, BP 114/67. There is increased work of breathing and audible wheezing at the bedside. IV was established. Patient was administered 60 mg Solu-Medrol, duo nebs 3. CBC is unremarkable. CMP pending BNP 10. CXR: Cardiomegaly with minimal basilar atelectasis. No effusion. Per radiology read. On recheck the patient reports some improvement of symptoms but there is still extra work of breathing and wheezing continues on auscultation. This is COPD exacerbation. Patient and her family are agreeable with observation admission. I spoke with Dr. Valencia who agrees to accept her to the [facility]. Please see medicine notes for disposition. Diagnosis Primary Impression: COPD with acute exacerbation Anne Rankin Jan 04, 2018 14:11
[2018-01-04] MEDS ORDERED: methylPREDNISolone SOD SUCC 125 MG/2 ML VIAL IV PUSH ONE (14:15)
[2018-01-04] MEDS: RESP: ALBUTEROL 2.5 MG/IPRATROPIUM 0.5 MG NEB (SCH) INH (14:16)
[2018-01-04 14:26] LABS: AUTOMATED NEUTROPHIL # 4.7 TH/MM3 (1.8-7.7); BASOPHIL # 0.1 TH/MM3 (0-0.2); EOSINOPHIL # 0.8 TH/MM3 (0-0.4); EOSINOPHIL % 10.3 % (0.0-4.0); HEMATOCRIT 39.2 % (35.0-46.0); HEMOGLOBIN 13.1 GM/DL (11.6-15.3); LYMPH % 18.8 % (9.0-44.0); LYMPHOCYTE # 1.5 TH/MM3 (1.0-4.8); MEAN CELL VOLUME 97.6 FL (80.0-100.0); MEAN CORPUSCULAR HEMOGLOBIN 32.7 PG (27.0-34.0); MEAN CORPUSCULAR HGB CONC 33.5 % (32.0-36.0); MONO % 9.5 % (0.0-8.0); MONOCYTE # 0.7 TH/MM3 (0-0.9); NEUT % 60.4 % (16.0-70.0); PLATELET COUNT 127 TH/MM3 (150-450); RED BLOOD COUNT 4.01 MIL/MM3 (4.00-5.30); RED CELL DISTRIBUTION WIDTH 14.2 % (11.6-17.2); WHITE BLOOD COUNT 7.8 TH/MM3 (4.0-11.0)
[2018-01-04 14:35] LABS: PROTHROMBIN TIME - PATIENT 10.3 SEC (9.8-11.6)
--- NOTE | 2018-01-04 14:45 | RADRPT ---
EXAM DATE/TIME: 01/04/2018 14:22 [facility] COMPARISON: No previous studies available for comparison. INDICATIONS : Shortness of breath and cough. Chest pain. MEDICAL HISTORY : Emphysema. Chronic obstructive pulmonary disease. Hypertension. Diabetes. SURGICAL HISTORY : None. ENCOUNTER: Initial ACUITY: 3 days PAIN SCORE: 4/10 LOCATION: Bilateral chest FINDINGS: A single view of the chest demonstrates cardiomegaly with minimal basilar atelectasis. Mildly tortuou s aorta. No effusion or pneumothorax. CONCLUSION: 1. Cardiomegaly with minimal basilar atelectasis. No effusion. Sriram Long MD on January 04, 2018 at 14:42 Board Certified Radiologist. This report was verified electronically.
[2018-01-04] MEDS ORDERED: FLUT1INH7 INH (15:18)
[2018-01-04] MEDS ORDERED: METO5TAB PO (15:18)
[2018-01-04] MEDS ORDERED: CLON0.1T PO (15:18)
[2018-01-04] MEDS ORDERED: HYDR-3583 PO (15:18)
[2018-01-04] MEDS ORDERED: PARO20TA2 PO (15:18)
[2018-01-04] MEDS ORDERED: MONT10TA4 PO (15:18)
[2018-01-04] MEDS ORDERED: METO25TA3 PO (15:18)
[2018-01-04] MEDS ORDERED: ALBUAER3 INH (15:18)
[2018-01-04] MEDS ORDERED: SPIRCAP INH (15:18)
[2018-01-04] MEDS ORDERED: ROSU1TAB4 PO (15:18)
--- NOTE | 2018-01-04 15:41 | PD ---
Data Data Last Documented VS Vital Signs Date Time Temp Pulse Resp B/P (MAP) Pulse Ox O2 Delivery O2 Flow Rate FiO2 01/04/18 14:10 84 18 131/77 (95) 98 Nasal Cannula 2.00 01/04/18 13:51 98.7 Orders Orders Complete Blood Count With Diff (01/04/18 13:57) Comprehensive Metabolic Panel (01/04/18 13:57) B-Type Natriuretic Peptide (01/04/18 13:57) Act Partial Throm Time (Ptt) (01/04/18 13:57) Prothrombin Time / Inr (Pt) (01/04/18 13:57) Magnesium (Mg) (01/04/18 13:57) Ckmb (Isoenzyme) Profile (01/04/18 13:57) Troponin I (01/04/18 13:57) Urinalysis - C+S If Indicated (01/04/18 13:57) Influenzae A/B Antigen (01/04/18 13:57) Iv Access Insert/Monitor (01/04/18 13:57) Electrocardiogram (01/04/18 13:57) Ecg Monitoring (01/04/18 13:57) Oximetry (01/04/18 13:57) Oxygen Administration (01/04/18 13:57) Chest, Single Ap (01/04/18 13:57) Sodium Chloride 0.9% Flush (Ns Flush) (01/04/18 14:00) Methylprednisolone So Succ Inj (Solumedr (01/04/18 14:15) Albuterol-Ipratropium Neb (Duoneb Neb) (01/04/18 14:15) Blood Glucose (01/04/18 14:04) Nicotine 21 Mg Patch.24 Hr (Habitrol 21 (01/04/18 15:45) Admit Order (Ed Use Only) (01/04/18 15:35) Labs Laboratory Tests Test 01/04/18 13:41 White Blood Count 7.8 TH/MM3 Red Blood Count 4.01 MIL/MM3 Hemoglobin 13.1 GM/DL Hematocrit 39.2 % Mean Corpuscular Volume 97.6 FL Mean Corpuscular Hemoglobin 32.7 PG Mean Corpuscular Hemoglobin Concent 33.5 % Red Cell Distribution Width 14.2 % Platelet Count 127 TH/MM3 Mean Platelet Volume 10.0 FL Neutrophils (%) (Auto) 60.4 % Lymphocytes (%) (Auto) 18.8 % Monocytes (%) (Auto) 9.5 % Eosinophils (%) (Auto) 10.3 % Basophils (%) (Auto) 1.0 % Neutrophils # (Auto) 4.7 TH/MM3 Lymphocytes # (Auto) 1.5 TH/MM3 Monocytes # (Auto) 0.7 TH/MM3 Eosinophils # (Auto) 0.8 TH/MM3 Basophils # (Auto) 0.1 TH/MM3 CBC Comment DIFF FINAL Differential Comment Prothrombin Time 10.3 SEC Prothromb Time International Ratio 1.0 RATIO Activated Partial Thromboplast Time 24.3 SEC B-Type Natriuretic Peptide 10 PG/ML MDM Supervised Visit with TORIE: Yes Narrative Course The history, exam, and medical decision-making in the associated mid-level provider note were completed with my assistance. I reviewed and agree with the findings presented. I attest that I had a [id number] encounter with the patient on the same day, and personally performed and documented my assessment and findings in the medical record. *My assessment and Findings: 67-year-old woman with COPD, here with exacerbation. She has marked diffuse wheezing, some shortness of breath. Some rales in the bases however BNP is normal and there is no chest x-ray evidence of pulmonary edema. No pneumonia. Recommend treatment for COPD exacerbation. She had some positive response in the ED but remains very wheezing short of breath. Will recommend admission to the rapid disposition unit. Prabhu Smith MD Jan 04, 2018 15:41
[2018-01-04] MEDS ORDERED: NICOTINE 21 MG/24 HR PATCH T-DERMAL ONE (15:45)
[2018-01-04] MEDS ORDERED: RESP: ALBUTEROL 2.5 MG/3 ML NEB (PRN) INH (16:15)
[2018-01-04] MEDS ORDERED: SODIUM CHLORIDE 0.9% FLUSH 10 ML FLUSH IV FLUSH PRN (16:15)
--- NOTE | 2018-01-04 16:16 | HHI.HP ---
[facility] Julian Padilla, Admission Diagnosis COPD exacerbation Diagnoses: Travel History International Travel<30 Days: No Contact w/Intl Traveler <30 Da: No Traveled to Known Affected Are: No History of Present Illness 67 year old female with DM, COPD, tobacco abuse, HTN, and HLD presenting with shortness of breath, productive cough, and wheezing for the past four days. She denies fever, chills, rhinorrhea, congestion, nausea, vomiting, edema, hemoptysis, abdominal pain, or decreased appetite. She endorses some chest pain related to coughing attacks. She has had no recent travel or been exposed to sick contacts. She does not get the flu shot and she has never had a pneumonia vaccine. She saw her PCP two days ago who gave her a Z -pack. She states she had no improvement despite the antibiotic and regular nebulizer treatments prompting her to seek further evaluation. She was not given any steroids. She continues to smoke daily up to 1PPD and uses 2L O2 at night. She remained short of breath and wheezing despite a dose of Solumedrol and three DuoNeb treatments in the ED. Review of Systems Constitutional: DENIES: Fever, Chills, Change in appetite Eyes: DENIES: Blurred vision Ears, nose, mouth, throat: DENIES: Throat pain, Running Nose, Sinus Pain Respiratory: COMPLAINS OF: Cough, Wheezing, Sputum production, Shortness of breath, DENIES: Hemoptysis Cardiovascular: DENIES: Chest pain, Palpitations, Syncope, Lower Extremity Edema, Orthopnea Gastrointestinal: DENIES: Abdominal pain, Black stools, Bloody stools, Constipation, Diarrhea, Nausea, Vomiting Genitourinary: DENIES: Hematuria, Dysuria Musculoskeletal: DENIES: Joint pain Integumentary: DENIES: Rash Hematologic/lymphatic: DENIES: Bruising Neurologic: DENIES: Headache Psychiatric: DENIES: Confusion Past Family Social History Past Medical History DM HTN COPD HLD Depression OA Past Surgical History Hysterectomy Appendectomy Reported Medications Proair Hfa 8.5 GM Inh (Albuterol Sulfate) 90 Mcg/Act Aer 2 Puff INH Q4-6H PRN Spiriva [place] (Tiotropium Inh) 18 Mcg Cap 18 Mcg INH DAILY Breo Ellipta Inh (Fluticasone/Vilanterol) 200-25 Mcg/Act Inh 1 Puff INH DAILY Clonidine (Clonidine HCl) 0.1 Mg Tab 0.1 Mg PO BID Montelukast (Montelukast Sodium) 10 Mg Tab 10 Mg PO HS Hydrocodone-Acetaminophen 10-325 mg Tab 1 Tab PO TID PRN Rosuvastatin (Rosuvastatin Calcium) 5 Mg Tab 5 Mg PO DAILY Paroxetine (Paroxetine HCl) 20 Mg Tab 20 Mg PO DAILY Metoprolol Tartrate 25 Mg Tab 25 Mg PO DAILY Metoclopramide (Metoclopramide HCl) 5 Mg Tab 5 Mg PO TIDAC Tradjenta (Linagliptin) 5 Mg Tab 5 Mg PO DAILY Furosemide 40 Mg Tab 40 Mg PO DAILY Lyrica (Pregabalin) 100 Mg Cap 100 Mg PO BID Invokana (Canagliflozin) 300 Mg Tab 300 Mg PO DAILY Take before 1st meal of day. Potassium Chloride ER (Potassium Chloride) 20 Meq Tab 20 Meq PO DAILY Allergies: Coded Allergies: Sulfa (Sulfonamide Antibiotics) (Unverified Allergy, Severe, THROAT SWELLS , HIVES, 05/13/17) acetaminophen (Unverified Allergy, Severe, THROAT SWELLS, HIVES, 05/13/17) benazepril (Unverified Allergy, Severe, ? angioedema, THROAT SWELLS, ) captopril (Unverified Allergy, Severe, ? angioedema, THROAT SWELLS, ) clindamycin (Unverified Allergy, Severe, THROAT SWELLS, HIVES, 05/13/17) codeine (Unverified Allergy, Severe, THROAT SWELLS, HIVES, 05/13/17) enalaprilat (Unverified Allergy, Severe, ? angioedema, THROAT SWELLS, 05/13) fosinopril (Unverified Allergy, Severe, ? angioedema, THROAT SWELLS, ) iodine (Unverified Allergy, Severe, Itching, 05/13/17) lisinopril (Unverified Allergy, Severe, ? angioedema, THROAT SWELLS, ) penicillin G (Unverified Allergy, Severe, THROAT SWELLS, HIVES, 05/13/17) potassium iodide (Unverified Allergy, Severe, Itching, 05/13/17) povidone-iodine (Unverified Allergy, Severe, Itching, 05/13/17) propoxyphene (Unverified Allergy, Severe, THROAT SWELLS, HIVES, 05/13/17) quinapril (Unverified Allergy, Severe, ? angioedema, THROAT SWELLS, ) sodium iodide (Unverified Allergy, Severe, Itching, 05/13/17) sodium iodide (Unverified Allergy, Severe, Itching, 05/13/17) tomato (Unverified Allergy, Severe, THROAT SWELLS, HIVES, 05/13/17) Active Ordered Medications Albuterol Sulfate (Albuterol Neb) 2.5 mg Q2HR NEB PRN INH; Start 01/04/18 at 16: 15 Albuterol/ Ipratropium (Duoneb Neb) 1 ampule Q15M INH Last administered on at 14:16; Admin Dose 1 AMPULE; Start 01/04/18 at 14:15; Stop 01/04/18 at 14:46; Status DC Albuterol/ Ipratropium (Duoneb Neb) 1 ampule Q6HR NEB INH; Start 01/04/18 at 20: 00 Clonidine (Catapres) 0.1 mg BID PO; Start 01/04/18 at 21:00 Doxycycline Hyclate (Vibramycin) 100 mg BID PO; Start 01/04/18 at 21:00 Fluticasone/ Vilanterol (Breo Ellipta 200-25 Inh) 1 puff DAILY INH; Start at 09:00 Furosemide (Lasix) 40 mg DAILY PO; Start 01/05/18 at 09:00 Methylprednisolone Sodium Succinate (SoluMEDROL INJ) 40 mg Q12HR IV PUSH; Start 01/04/18 at 21:00 Methylprednisolone Sodium Succinate (SoluMEDROL INJ) 60 mg ONCE ONCE IV PUSH Last administered on 01/04/18at 14:17; Admin Dose 60 MG; Start 01/04/18 at 14:15; Stop 01/04/18 at 14:16; Status DC Metoclopramide HCl (Reglan) 5 mg TIDAC PO; Start 01/04/18 at 17:00 Metoprolol Tartrate (Lopressor) 25 mg DAILY PO; Start 01/05/18 at 09:00 Montelukast Sodium (Singulair) 10 mg HS PO; Start 01/04/18 at 21:00 Nicotine (Habitrol 21 Mg Patch.24 Hr) 1 patch ONCE ONCE T-DERMAL Last administered on 01/04/18at 16:29; Admin Dose 1 PATCH; Start 01/04/18 at 15:45; Stop 01/04/18 at 15:46; Status DC Paroxetine HCl (Paxil) 20 mg DAILY PO; Start 01/05/18 at 09:00 Patient Own Medication PT OWN MED:(Linagliptin (Tradjenta... DAILY PO; Start 01/05/18 at 09:00; Status Future Hold Patient Own Medication PT OWN MED: (Canagliflozin (Invoka... DAILY PO; Start 01/05/18 at 09:00; Status Future Hold Potassium Chloride (KCl) 20 meq DAILY PO; Start 01/05/18 at 09:00 Pravastatin Sodium (Pravachol) 10 mg DAILY PO; Start 01/05/18 at 09:00 Pregabalin (Lyrica) 100 mg BID PO; Start 01/04/18 at 21:00 Sodium Chloride (NS Flush) 2 ml BID IV FLUSH; Start 01/04/18 at 21:00 Sodium Chloride (NS Flush) 2 ml UNSCH PRN IV FLUSH; Start 01/04/18 at 16:15 Sodium Chloride (NS Flush) 2 ml UNSCH PRN IVF Last administered on 01/04/18at 14: 17; Admin Dose 2 ML; Start 01/04/18 at 14:00; Stop 01/04/18 at 16:36; Status DC Tiotropium [place] (Spiriva Inh) 18 mcg DAILY INH; Start 01/05/18 at 09:00 Family History Mother had diabetes and HTN Social History Lives with daughter EtOH: denies Tobacco: ~1PPD x >40 years Illicit drugs: denies Physical Exam Vital Signs Vital Signs Date Time Temp Pulse Resp B/P (MAP) Pulse Ox O2 Delivery O2 Flow Rate FiO2 01/04/18 14:10 84 18 131/77 (95) 98 Nasal Cannula 2.00 01/04/18 14:10 Nasal Cannula 2.00 01/04/18 14:09 98 Nasal Cannula 2.00 01/04/18 14:00 90 19 01/04/18 13:51 98.7 149 22 114/67 (83) 100 Physical Exam GENERAL: Obese, pleasant AA female sitting up comfortably in bed in NAD. SKIN: No rashes, ecchymoses or lesions. Cool and dry. HEENT: Atraumatic. Normocephalic. No temporal or scalp tenderness. Pupils equal round and reactive. Extraocular motions intact. No scleral icterus. No injection or drainage. Nose without bleeding, purulent drainage or septal hematoma. Throat without erythema, tonsillar hypertrophy or exudate. Uvula midline. Airway patent. NECK: Trachea midline. No JVD or lymphadenopathy. Supple, nontender, no meningeal signs. CARDIOVASCULAR: Regular rate and rhythm without murmurs, gallops, or rubs. RESPIRATORY: Diffuse inspiratory and expiratory wheezing with no appreciable crackles. GASTROINTESTINAL: Abdomen soft, non-tender, nondistended. No hepatosplenomegaly or palpable masses. No guarding. MUSCULOSKELETAL: Extremities without clubbing, cyanosis, or edema. No joint tenderness, effusion, or edema noted. No calf tenderness. Negative Homans sign bilaterally. NEUROLOGICAL: Awake and alert. Motor and sensory grossly within normal limits. Normal speech. Laboratory Laboratory Tests Test 01/04/18 13:41 White Blood Count 7.8 Red Blood Count 4.01 Hemoglobin 13.1 Hematocrit 39.2 Mean Corpuscular Volume 97.6 Mean Corpuscular Hemoglobin 32.7 Mean Corpuscular Hemoglobin Concent 33.5 Red Cell Distribution Width 14.2 Platelet Count 127 Mean Platelet Volume 10.0 Neutrophils (%) (Auto) 60.4 Lymphocytes (%) (Auto) 18.8 Monocytes (%) (Auto) 9.5 Eosinophils (%) (Auto) 10.3 Basophils (%) (Auto) 1.0 Neutrophils # (Auto) 4.7 Lymphocytes # (Auto) 1.5 Monocytes # (Auto) 0.7 Eosinophils # (Auto) 0.8 Basophils # (Auto) 0.1 CBC Comment DIFF FINAL Differential Comment Prothrombin Time 10.3 Prothromb Time International Ratio 1.0 Activated Partial Thromboplast Time 24.3 B-Type Natriuretic Peptide 10 Date/Time Source Procedure Growth Status 01/04/18 13:41 Nasal Washing Influenza Types A,B Antigen (OTTO) - Final NEGATIVE FOR FLU A AND B ANTIGEN.... Complete Result Diagram: 01/04/18 1341 Imaging Chest X-Ray 01/04/18 1357 Signed Impressions: Service Date/Time: Thursday, January 04, 2018 14:22 - CONCLUSION: 1. Cardiomegaly with minimal basilar atelectasis. No effusion. MD Adryan Vieira VTE Risk Assessment Caprinvenkata VTE Risk Assessment: Mod/High Risk (score >= 2) Caprini Risk Assessment Model Point Value = 1 Point Value = 2 Point Value = 3 Point Value = 5 Age 41-60 Minor surgery BMI > 25 kg/m2 Swollen legs Varicose veins or History of unexplained or recurrent spontaneous Oral contraceptives or hormone replacement Sepsis (< 1 month) Serious lung disease, including pneumonia (< 1 month) Abnormal pulmonary function Acute myocardial infarction Congestive heart failure (< 1 month) History of inflammatory bowel disease Medical patient at bed rest Age 61-74 Arthroscopic surgery Major open surgery (> 45 min) Laparoscopic surgery (> 45 min) Malignancy Confined to bed (> 72 hours) Immobilizing plaster cast Central venous access Age >= 75 History of VTE Family history of VTE Factor V Leiden Prothrombin [id number] Lupus anticoagulant Anticardiolipin antibodies Elevated serum homocysteine Heparin-induced thrombocytopenia Other congenital or acquired thrombophilia Stroke (< 1 month) Elective arthroplasty Hip, pelvis, or leg fracture Acute spinal cord injury (< 1 month) Prophylaxis Regimen Total Risk Factor Score Risk Level Prophylaxis Regimen 0-1 Low Early ambulation 2 Moderate Order ONE of the following: *Sequential Compression Device (SCD) *Heparin 5000 units SQ BID 3-4 Higher Order ONE of the following medications: *Heparin 5000 units SQ TID *Enoxaparin/Lovenox 40 mg SQ daily (WT < 150 kg, CrCl > 30 mL/min) *Enoxaparin/Lovenox 30 mg SQ daily (WT < 150 kg, CrCl > 10-29 mL/min) *Enoxaparin/Lovenox 30 mg SQ BID (WT < 150 kg, CrCl > 30 mL/min) AND/OR *Sequential Compression Device (SCD) 5 or more Highest Order ONE of the following medications: *Heparin 5000 units SQ TID (Preferred with Epidurals) *Enoxaparin/Lovenox 40 mg SQ daily (WT < 150 kg, CrCl > 30 mL/min) *Enoxaparin/Lovenox 30 mg SQ daily (WT < 150 kg, CrCl > 10-29 mL/min) *Enoxaparin/Lovenox 30 mg SQ BID (WT < 150 kg, CrCl > 30 mL/min) AND *Sequential Compression Device (SCD) Assessment and Plan Assessment and Plan 67 year old female with DM, COPD, tobacco abuse, HTN, and HLD presenting with shortness of breath, productive cough, and wheezing for the past four days. 1. COPD exacerbation - Still short of breath and wheezing after DuoNeb x 3 in the ER - Afebrile, no leukocytosis - CXR without signs of consolidation - SoluMedrol 40 mg IV Q12H - Doxycycline 100 mg PO BID - DuoNeb Q4H - Supplemental O2 2. Diabetes mellitus - Hold home meds and place on SSI per protocol - Continue Lyrica for neuropathy 3. Tobacco abuse - Nicotine patch - Cessation counseling 4. HTN - Resume home metoprolol and clonidine 5. Depression - Resume home paroxetine 6. HLD - Continue home statin DVT prophylaxis: Heparin 5000 units Q8 Code Status DNR Discussed Condition With Patient and family Luisa Solis MD Jan 04, 2018 16:16
[2018-01-04] MEDS ORDERED: hydrALAZINE HCL 20 MG/ML VIAL IV PUSH PRN (17:15)
[2018-01-04] MEDS ORDERED: GLUCAGON 1 MG/ML VIAL OTHER PRN (17:15)
[2018-01-04] MEDS ORDERED: DEXTROSE 50% IN WATER 50 ML VIAL(D50) IV PUSH PRN (17:15)
[2018-01-04] MEDS: METOCLOPRAMIDE HCL 10 MG TAB PO SCH (17:16)
[2018-01-04 17:29] VITALS: BP 142/80; PULSE 78; RESP 18; TEMP 97.7; O2SAT 96
[2018-01-04] MEDS ORDERED: RESP: ALBUTEROL 2.5 MG/IPRATROPIUM 0.5 MG NEB (SCH) INH (20:00)
[2018-01-04] MEDS: REMOVE OLD PATCH T-DERMAL SCH (21:00)
[2018-01-04] MEDS: RESP: ALBUTEROL 2.5 MG/IPRATROPIUM 0.5 MG NEB (SCH) NEB ×2 (21:05→23:55)
[2018-01-04 21:33] VITALS: BP 143/81; PULSE 87; RESP 17; TEMP 99; O2SAT 93
[2018-01-04 22:46] LABS: BILIRUBIN, URINE NEG (NEG); BLOOD, URINE NEG (NEG); GLUCOSE,URINE 1000 mg/dL (NEG); HYALINE CAST, URINE 38 /lpf (RARE); KETONE, URINE NEG (NEG); MUCUS URINE FEW /lpf (OCC); NITRITE,URINE POS (NEG); PH, URINE 5.5 (5.0-8.5); SQUAMOUS EPITHELIAL CELL URINE 1 /hpf (0-5); URINE COLOR YELLOW (YELLW/STRAW); URINE LEUKOCYTE ESTERASE MOD (NEG)
[2018-01-04 22:47] LABS: BACTERIA, URINE MOD /hpf
[2018-01-05] VITALS (10 sets, daily range): BP systolic 144–182; BP diastolic 65–88; PULSE 65–95; RESP 16–18; TEMP 97.4–99.2; O2SAT 90–98
[2018-01-05] MEDS: cloNIDine HCL 0.1 MG TAB PO SCH ×3 (00:33→22:35)
[2018-01-05] MEDS: HEPARIN SODIUM - SQ 10,000 UNITS/ML VIAL SQ SCH ×4 (00:33→22:35)
[2018-01-05] MEDS: PREGABALIN 100 MG CAP PO SCH ×3 (00:33→22:36)
[2018-01-05] MEDS: INSULIN ASPART SUPPLEMENTAL SCALE SQ SCH ×5 (00:34→23:22)
[2018-01-05] MEDS: methylPREDNISolone SOD SUCC 40 MG/1 ML VIAL IV PUSH SCH ×4 (00:34→22:35)
[2018-01-05] MEDS: SODIUM CHLORIDE 0.9% FLUSH 10 ML FLUSH IV FLUSH SCH ×3 (00:39→22:34)
[2018-01-05] MEDS: MONTELUKAST SODIUM 10 MG TAB PO SCH ×2 (00:39→22:36)
[2018-01-05] MEDS: DOXYCYCLINE HYCLATE 100 MG CAP PO SCH ×2 (00:54→09:59)
[2018-01-05 03:03] LABS: AUTOMATED NEUTROPHIL # 5.5 TH/MM3 (1.8-7.7); BASOPHIL % 0.1 % (0.0-2.0); EOSINOPHIL % 0.1 % (0.0-4.0); HEMATOCRIT 38.9 % (35.0-46.0); LYMPH % 9.3 % (9.0-44.0); LYMPHOCYTE # 0.6 TH/MM3 (1.0-4.8); MEAN CELL VOLUME 98.2 FL (80.0-100.0); MEAN CORPUSCULAR HEMOGLOBIN 32.9 PG (27.0-34.0); MEAN CORPUSCULAR HGB CONC 33.5 % (32.0-36.0); MEAN PLATELET VOLUME 9.7 FL (7.0-11.0); MONO % 2.1 % (0.0-8.0); MONOCYTE # 0.1 TH/MM3 (0-0.9); NEUT % 88.4 % (16.0-70.0); PLATELET COUNT 123 TH/MM3 (150-450); RED BLOOD COUNT 3.96 MIL/MM3 (4.00-5.30); WHITE BLOOD COUNT 6.3 TH/MM3 (4.0-11.0)
[2018-01-05 03:14] LABS: ALBUMIN 3.6 GM/DL (3.4-5.0); ALT (GPT) 20 U/L (10-53); AST (GOT) 16 U/L (15-37); BLOOD UREA NITROGEN 24 MG/DL (7-18); CALCIUM 9.3 MG/DL (8.5-10.1); CHLORIDE 102 MEQ/L (98-107); CREATININE 1.75 MG/DL (0.50-1.00); GLOMERULAR FILTRATION RATE 35 ML/MIN (>89); GLUCOSE,RANDOM 175 MG/DL (74-106); MAGNESIUM 2.3 MG/DL (1.5-2.5); SODIUM (NA) 143 MEQ/L (136-145)
[2018-01-05 03:18] LABS: ALKALINE PHOSPHATASE 75 U/L (45-117); TOTAL BILIRUBIN ADULT 0.2 MG/DL (0.2-1.0); TOTAL PROTEIN 7.4 GM/DL (6.4-8.2); TROPONIN I LESS THAN 0.02 NG/ML (0.02-0.05)
[2018-01-05] MEDS: RESP: ALBUTEROL 2.5 MG/IPRATROPIUM 0.5 MG NEB (SCH) NEB ×6 (04:02→23:11)
[2018-01-05] MEDS ORDERED: METOPROLOL TARTRATE 25 MG TAB PO SCH (09:00)
[2018-01-05] MEDS ORDERED: CANAGLIFLOZIN 300 MG PO SCH (09:00)
[2018-01-05] MEDS ORDERED: LINAGLIPTIN 5 MG PO SCH (09:00)
[2018-01-05] MEDS ORDERED: FUROSEMIDE 40 MG TAB PO SCH (09:00)
[2018-01-05] MEDS: PARoxetine HCL 20 MG TAB PO SCH (10:00)
[2018-01-05] MEDS: METOCLOPRAMIDE HCL 10 MG TAB PO SCH ×3 (10:00→16:51)
[2018-01-05] MEDS: POTASSIUM CHLORIDE 20 MEQ CONTROLLED RELEASE TAB PO SCH (10:00)
[2018-01-05] MEDS: PRAVASTATIN SOD 10 MG TAB PO SCH (10:01)
[2018-01-05] MEDS: TIOTROPIUM BROMIDE 18 MCG INH INH SCH (10:02)
[2018-01-05] MEDS: FLUTICASONE 200 MCG/VILANTEROL 25 MCG INHALER INH SCH (10:02)
[2018-01-05] MEDS: NICOTINE 21 MG/24 HR PATCH T-DERMAL SCH (10:04)
--- NOTE | 2018-01-05 15:11 | EKG ---
Date Performed: 01/04/2018 Time Performed: 14:00:01 PTAGE: 67 years EKG: Sinus rhythm NONSPECIFIC T-WAVE ABNORMALITY Since the previous tracing, no significant change noted BORDERLINE EC G PREVIOUS TRACING : 10/22/2011 06.12 DOCTOR: Bea Bar Interpretating Date/Time 01/05/2018 15:08:45
--- NOTE | 2018-01-05 15:16 | HHI.PR ---
Subjective Remarks Deferred entry, the patient was seen earlier at 12:20 PM. sob improving Denies cp. Afebrile Objective Vitals Vital Signs Date Time Temp Pulse Resp B/P (MAP) Pulse Ox O2 Delivery O2 Flow Rate FiO2 01/05/18 12:36 97.8 65 16 157/68 (97) 97 01/05/18 08:42 97 Nasal Cannula 3.00 01/05/18 07:06 98.6 70 16 166/85 (112) 97 01/05/18 04:29 98.2 93 18 144/76 (98) 92 01/05/18 01:46 98.3 84 16 145/82 (103) 90 01/04/18 21:33 99.0 87 17 143/81 (101) 93 01/04/18 21:09 Nasal Cannula 2.00 01/04/18 17:29 97.7 78 18 142/80 (100) 96 01/04/18 17:18 (95) Nasal Cannula 2.00 I/O 01/04/18 01/04/18 01/04/18 01/05/18 01/05/18 01/05/18 07:00 15:00 23:00 07:00 15:00 23:00 Intake Total 0 ml Balance 0 ml Intake Oral 0 ml # Voids 2 Result Diagram: 01/05/18 0246 01/05/18 0246 Imaging Last Impressions Chest X-Ray 01/04/18 1357 Signed Impressions: Service Date/Time: Thursday, January 04, 2018 14:22 - CONCLUSION: 1. Cardiomegaly with minimal basilar atelectasis. No effusion. Sriram Long MD Objective Remarks AAOx3 Diffuse bilateral expiratory wheezing. No rales or rhonchi auscultated. no edema in lower extremities S1S2 RRR, no MRG Medications and IVs Current Medications Medications (Trade) Dose Ordered Sig/Jackie Route Start Time Stop Time Status Last Admin (NS Flush) 2 ml BID IV FLUSH 01/04/18 21:00 01/05/18 09:00 (NS Flush) 2 ml UNSCH PRN IV FLUSH 01/04/18 16:15 (Albuterol Neb) 2.5 mg Q2HR NEB PRN INH 01/04/18 16:15 (Vibramycin) 100 mg BID PO 01/04/18 21:00 01/05/18 09:59 (Catapres) 0.1 mg BID PO 01/04/18 21:00 01/05/18 10:01 (Breo Ellipta 200-25 Inh) 1 puff DAILY INH 01/05/18 09:00 01/05/18 10:02 (Lasix) 40 mg DAILY PO 01/05/18 09:00 01/05/18 10:00 (Reglan) 5 mg TIDAC PO 01/04/18 17:00 01/05/18 13:43 (Lopressor) 25 mg DAILY PO 01/05/18 09:00 01/05/18 10:00 (Singulair) 10 mg HS PO 01/04/18 21:00 01/05/18 00:39 (Paxil) 20 mg DAILY PO 01/05/18 09:00 01/05/18 10:00 (KCl) 20 meq DAILY PO 01/05/18 09:00 01/05/18 10:00 (Lyrica) 100 mg BID PO 01/04/18 21:00 01/05/18 10:00 (Spiriva Inh) 18 mcg DAILY INH 01/05/18 09:00 01/05/18 10:02 Patient Own Medication PT OWN MED: (Canagliflozin (Invoka... DAILY PO 01/05/18 09:00 Future Hold Patient Own Medication PT OWN MED:(Linagliptin (Tradjenta... DAILY PO 01/05/18 09:00 Future Hold (Pravachol) 10 mg DAILY PO 01/05/18 09:00 01/05/18 10:01 (D50w (Vial) Inj) 50 ml UNSCH PRN IV PUSH 01/04/18 17:15 (Glucagon Inj) 1 mg UNSCH PRN OTHER 01/04/18 17:15 (NovoLOG SUPPLEMENTAL SCALE) 1 ACHS SLIDING SCALE SQ 01/04/18 21:00 01/05/18 13:43 (Apresoline Inj) 20 mg Q4H PRN IV PUSH 01/04/18 17:15 (Heparin Inj) 5,000 units Q8HR SQ 01/04/18 22:00 01/05/18 07:47 (Habitrol 21 Mg Patch.24 Hr) 1 patch DAILY T-DERMAL 01/05/18 09:00 01/05/18 10:04 Miscellaneous Information 1 HS T-DERMAL 01/04/18 21:00 01/04/18 21:00 (Duoneb Neb) 1 ampule Q4HR NEB NEB 01/04/18 20:00 01/05/18 11:52 (SoluMEDROL INJ) 60 mg Q6H IV PUSH 01/05/18 15:00 A/P Problem List: (1) COPD with acute exacerbation ICD Code: J44.1 - Chronic obstructive pulmonary disease with (acute) exacerbation Plan: The patient was admitted to the observation unit. Patient with improving shortness of breath however still wheezing. Continue IV Solu-Medrol, however I will increase dose from Solu-Medrol 40 mg IV every 12 hours to follow Medrol 40 mg IV every 6 hours. Continue Spiriva and Breo Ellipta Discontinue doxycycline and start IV Levaquin for proper antipseudomonal coverage. (2) HLD (hyperlipidemia) ICD Code: E78.5 - Hyperlipidemia, unspecified Plan: On statin. Continue (3) Depression ICD Code: F32.9 - Major depressive disorder, single episode, unspecified Plan: Continue paroxetine. Seems to be stable. (4) Diabetes ICD Code: E11.9 - Type 2 diabetes mellitus without complications Plan: Sugars elevated into the 180s. Continue SSI with insulin NovoLog. Continue Tradjenta or invokana. Continue to monitor blood sugars. (5) HTN (hypertension) ICD Code: I10 - Essential (primary) hypertension Plan: Blood pressure severely elevated into the 160 systolic. Continue metoprolol tartrate. Will increase dose from 25 minutes p.o. daily to 25 minutes p.o. twice daily. (6) Tobacco abuse ICD Code: Z72.0 - Tobacco use Plan: Nicotine patch. (7) UTI (urinary tract infection) ICD Code: N39.0 - Urinary tract infection, site not specified Plan: Patient currently on doxycycline p.o. I will switch antibiotics to IV Levaquin. DC doxycycline Follow-up urine culture which is pending. Assessment and Plan DVT prophylaxis: SCDs, heparin subcutaneously. GI prophylaxis: We will place on PPI since patient is on systemic steroids. Discharge Planning Continue to monitor and the observation floor. Problem Qualifiers (1) Diabetes: (2) HTN (hypertension): Qualified Codes: I10 - Essential (primary) hypertension Neil Rolle MD Jan 05, 2018 15:16
[2018-01-05] MEDS: LEVOFLOXACIN 750 MG PREMIX INJ 150 ML IV SCH (16:52)
[2018-01-05] MEDS: hydrALAZINE HCL 25 MG TAB PO PRN (17:57)
[2018-01-05] MEDS: REMOVE OLD PATCH T-DERMAL SCH (21:00)
[2018-01-05] MEDS: METOPROLOL TARTRATE 25 MG TAB PO SCH (22:36)
[2018-01-06] VITALS (12 sets, daily range): BP systolic 126–192; BP diastolic 65–86; PULSE 57–74; RESP 15–20; TEMP 97.8–99; O2SAT 87–99
[2018-01-06] MEDS: RESP: ALBUTEROL 2.5 MG/IPRATROPIUM 0.5 MG NEB (SCH) NEB ×5 (03:37→19:30)
[2018-01-06] MEDS: methylPREDNISolone SOD SUCC 40 MG/1 ML VIAL IV PUSH SCH ×4 (04:20→21:55)
[2018-01-06] MEDS: HEPARIN SODIUM - SQ 10,000 UNITS/ML VIAL SQ SCH ×3 (06:28→21:56)
[2018-01-06] MEDS: cloNIDine HCL 0.1 MG TAB PO SCH (06:28)
[2018-01-06] MEDS: NICOTINE 21 MG/24 HR PATCH T-DERMAL SCH (08:24)
[2018-01-06] MEDS: PREGABALIN 100 MG CAP PO SCH ×2 (08:25→21:56)
[2018-01-06] MEDS: POTASSIUM CHLORIDE 20 MEQ CONTROLLED RELEASE TAB PO SCH (08:26)
[2018-01-06] MEDS: METOCLOPRAMIDE HCL 10 MG TAB PO SCH ×3 (08:27→17:41)
[2018-01-06] MEDS: PRAVASTATIN SOD 10 MG TAB PO SCH (08:27)
[2018-01-06] MEDS: SODIUM CHLORIDE 0.9% FLUSH 10 ML FLUSH IV FLUSH SCH ×2 (08:28→21:56)
[2018-01-06] MEDS: METOPROLOL TARTRATE 25 MG TAB PO SCH ×2 (08:28→21:56)
[2018-01-06] MEDS: PARoxetine HCL 20 MG TAB PO SCH (08:28)
[2018-01-06] MEDS: TIOTROPIUM BROMIDE 18 MCG INH INH SCH (08:29)
[2018-01-06] MEDS: FLUTICASONE 200 MCG/VILANTEROL 25 MCG INHALER INH SCH (08:29)
[2018-01-06] MEDS: INSULIN ASPART SUPPLEMENTAL SCALE SQ SCH ×4 (09:31→22:00)
--- NOTE | 2018-01-06 09:41 | PD.PN.STU ---
Subjective Remarks Patient states she has been having a productive cough. Still complains of shortness of breath but improving. Complains of frontal headache. History of headaches, similar to pain in the past. Denies chest pain, nausea/vomiting, abdominal pain. Objective Vitals Vital Signs Date Time Temp Pulse Resp B/P (MAP) Pulse Ox O2 Delivery O2 Flow Rate FiO2 01/06/18 08:19 99 Nasal Cannula 2.00 01/06/18 08:04 99.0 58 20 192/83 (119) 97 01/06/18 05:02 98.1 66 15 186/86 (119) 91 01/06/18 00:40 98.2 61 16 177/86 (116) 87 01/05/18 22:19 97.4 95 16 159/75 (103) 95 01/05/18 19:58 98 Nasal Cannula 3.00 01/05/18 17:39 182/88 (119) 01/05/18 17:16 99.2 69 16 180/88 (118) 96 01/05/18 12:36 97.8 65 16 157/68 (97) 97 I/O 01/05/18 01/05/18 01/05/18 01/06/18 01/06/18 01/06/18 07:00 15:00 23:00 07:00 15:00 23:00 # Voids 3 Result Diagram: 01/05/18 0246 01/05/18 0246 Objective Remarks AAOx3 Diffuse bilateral expiratory wheezing. No rales or rhonchi auscultated. no edema in lower extremities S1S2 RRR, no MRG A/P Assessment and Plan Problem List: 1. COPD Exacerbation Patient with improving shortness of breath however still wheezing. Continue IV Solu-Medrol 40 mg IV every 6 hours. Continue Spiriva and Breo Ellipta Continue IV Levaquin. /10 continues to have wheezing, but improving clinically. 2. HTN 01/06 bp continues to rise with 25 mg bid metoprolol, hydralazine 25 mg q8hr for bp >160 sys, and clonidine 0.1 q8hrs. Continue to monitor with possible diuresis with concern for kidney function. 3. AMBROSE 01/06 pending BMP for continue monitoring. 4. Diabetes 01/06: Sugars elevated but acceptable at 156. Continue SSI with insulin NovoLog. Continue Tradjenta or invokana. Continue to monitor blood sugars. 5. UTI 01/05 I will switch antibiotics to IV Levaquin. DC doxycycline. Follow-up urine culture which is pending. 01/06 urine culture shows gram negative rods, continue on IV levaquin. 6. Hyperlipidemia continue on statin 7. Depression Continue on paroxetine. 8. Tobacco use. Continue on nicotine patch 9. DVT prophylaxis: SCDs, heparin subcutaneously. 10. GI prophylaxis: We will place on PPI since patient is on systemic steroids. Discharge Planning Continue to monitor and the observation floor. Verenice Rodgers M3 Jan 06, 2018 09:41
[2018-01-06] MEDS ORDERED: cloNIDine HCL 0.1 MG TAB PO ONE (11:00)
[2018-01-06] MEDS: hydrALAZINE HCL 25 MG TAB PO PRN (11:08)
[2018-01-06 11:46] LABS: BICARBONATE 32.9 MEQ/L (21.0-32.0); CALCIUM 10.1 MG/DL (8.5-10.1); CREATININE 1.37 MG/DL (0.50-1.00)
--- NOTE | 2018-01-06 12:54 | HHI.PR ---
Subjective Remarks sob improving Denies fevers/chills denies cp + cough with phlegm Objective Vitals Vital Signs Date Time Temp Pulse Resp B/P (MAP) Pulse Ox O2 Delivery O2 Flow Rate FiO2 01/06/18 12:11 69 126/68 (87) 95 01/06/18 11:30 98.0 57 18 177/81 (113) 93 01/06/18 10:51 97.9 60 20 171/78 (109) 93 01/06/18 10:02 66 181/81 (114) 94 01/06/18 08:19 99 Nasal Cannula 2.00 01/06/18 08:04 99.0 58 20 192/83 (119) 97 01/06/18 05:02 98.1 66 15 186/86 (119) 91 01/06/18 00:40 98.2 61 16 177/86 (116) 87 01/05/18 22:19 97.4 95 16 159/75 (103) 95 01/05/18 19:58 98 Nasal Cannula 3.00 01/05/18 17:39 182/88 (119) 01/05/18 17:16 99.2 69 16 180/88 (118) 96 I/O 01/05/18 01/05/18 01/05/18 01/06/18 01/06/18 01/06/18 07:00 15:00 23:00 07:00 15:00 23:00 # Voids 3 Result Diagram: 01/05/18 0246 01/06/18 1035 Imaging Last Impressions Chest X-Ray 01/04/18 1357 Signed Impressions: Service Date/Time: Thursday, January 04, 2018 14:22 - CONCLUSION: 1. Cardiomegaly with minimal basilar atelectasis. No effusion. Sriram Long MD Objective Remarks AAOx3 Diffuse bilateral expiratory wheezing. No rales or rhonchi auscultated. no edema in lower extremities S1S2 RRR, no MRG Medications and IVs Current Medications Medications (Trade) Dose Ordered Sig/Jackie Route Start Time Stop Time Status Last Admin (NS Flush) 2 ml BID IV FLUSH 01/04/18 21:00 01/06/18 08:28 (NS Flush) 2 ml UNSCH PRN IV FLUSH 01/04/18 16:15 (Albuterol Neb) 2.5 mg Q2HR NEB PRN INH 01/04/18 16:15 (Breo Ellipta 200-25 Inh) 1 puff DAILY INH 01/05/18 09:00 01/06/18 08:29 (Lasix) 40 mg DAILY PO 01/05/18 09:00 Future Hold 01/05/18 10:00 (Reglan) 5 mg TIDAC PO 01/04/18 17:00 01/06/18 12:33 (Singulair) 10 mg HS PO 01/04/18 21:00 01/05/18 22:36 (Paxil) 20 mg DAILY PO 01/05/18 09:00 01/06/18 08:28 (KCl) 20 meq DAILY PO 01/05/18 09:00 01/06/18 08:26 (Lyrica) 100 mg BID PO 01/04/18 21:00 01/06/18 08:25 (Spiriva Inh) 18 mcg DAILY INH 01/05/18 09:00 01/06/18 08:29 Patient Own Medication PT OWN MED: (Canagliflozin (Invoka... DAILY PO 01/05/18 09:00 Future Hold Patient Own Medication PT OWN MED:(Linagliptin (Tradjenta... DAILY PO 01/05/18 09:00 Future Hold (Pravachol) 10 mg DAILY PO 01/05/18 09:00 01/06/18 08:27 (D50w (Vial) Inj) 50 ml UNSCH PRN IV PUSH 01/04/18 17:15 (Glucagon Inj) 1 mg UNSCH PRN OTHER 01/04/18 17:15 (NovoLOG SUPPLEMENTAL SCALE) 1 ACHS SLIDING SCALE SQ 01/04/18 21:00 01/06/18 09:31 (Heparin Inj) 5,000 units Q8HR SQ 01/04/18 22:00 01/06/18 06:28 (Habitrol 21 Mg Patch.24 Hr) 1 patch DAILY T-DERMAL 01/05/18 09:00 01/06/18 08:24 Miscellaneous Information 1 HS T-DERMAL 01/04/18 21:00 01/04/18 21:00 (Duoneb Neb) 1 ampule Q4HR NEB NEB 01/04/18 20:00 01/06/18 12:25 (SoluMEDROL INJ) 60 mg Q6H IV PUSH 01/05/18 15:00 01/06/18 08:28 (Lopressor) 25 mg BID PO 01/05/18 21:00 01/06/18 08:28 Levofloxacin/ Dextrose 150 ml @ 100 mls/hr Q48H IV 01/05/18 16:00 01/05/18 16:52 (Apresoline) 25 mg Q8HR PRN PO 01/05/18 17:45 01/06/18 11:08 (Catapres) 0.2 mg Q8HR PO 01/06/18 14:00 A/P Problem List: (1) COPD with acute exacerbation ICD Code: J44.1 - Chronic obstructive pulmonary disease with (acute) exacerbation Plan: The patient was admitted to the observation unit. Patient with improving shortness of breath however still wheezing. Continue IV Solu-Medrol, however I will increase dose from Solu-Medrol 40 mg IV every 12 hours to follow Medrol 40 mg IV every 6 hours. Continue Spiriva and Breo Ellipta Doxycycline discontinued on 01/05. 01/06 continue IV Levaquin, same dose of IV Solu-Medrol, Spiriva, duo nebs, Breo Ellipta. Continue supplemental oxygen. (2) HLD (hyperlipidemia) ICD Code: E78.5 - Hyperlipidemia, unspecified Plan: On statin. Continue (3) Depression ICD Code: F32.9 - Major depressive disorder, single episode, unspecified Plan: Continue paroxetine. Seems to be stable. (4) Diabetes ICD Code: E11.9 - Type 2 diabetes mellitus without complications Plan: Sugars elevated into the 180s. Continue SSI with insulin NovoLog. Continue Tradjenta or invokana. Continue to monitor blood sugars. (5) HTN (hypertension) ICD Code: I10 - Essential (primary) hypertension Plan: Blood pressure severely elevated into the 160 systolic. Continue metoprolol tartrate. Will increase dose from 25 minutes p.o. daily to 25 minutes p.o. twice daily. 01/06 BP severely elevated with a systolic blood pressure into the 190 systolic. We will give an extra dose of 0.1 mg of p.o. clonidine now. Increase scheduled clonidine to 0.2 mg p.o. every 8 hours. Continue hydralazine as needed. Monitor vital signs. (6) Tobacco abuse ICD Code: Z72.0 - Tobacco use Plan: Nicotine patch. (7) UTI (urinary tract infection) ICD Code: N39.0 - Urinary tract infection, site not specified Plan: Patient currently on doxycycline p.o. I will switch antibiotics to IV Levaquin. DC doxycycline Follow-up urine culture which is pending. 01/06 urine culture growing Klebsiella pneumonia pansensitive. Continue Levaquin. (8) AMBROSE (acute kidney injury) ICD Code: N17.9 - Acute kidney failure, unspecified Plan: A KI on CKD stage III. Upon review of medical records the patient has a baseline creatinine of 1.37. On admission creatinine was 1.75, improved and back to baseline today. Continue to monitor BUN and creatinine, strict I's and O's, avoid nephrotoxins. Assessment and Plan DVT prophylaxis: SCDs, heparin subcutaneously. GI prophylaxis: We will place on PPI since patient is on systemic steroids. Discharge Planning Continue to monitor and the observation floor. Problem Qualifiers (1) Diabetes: (2) HTN (hypertension): Qualified Codes: I10 - Essential (primary) hypertension Neil Rolle MD Jan 06, 2018 12:54
[2018-01-06] MEDS: cloNIDine HCL 0.2 MG TAB PO SCH ×2 (14:12→21:56)
[2018-01-06] MEDS ORDERED: hydrALAZINE HCL 25 MG TAB PO ONE (18:15)
[2018-01-06] MEDS: REMOVE OLD PATCH T-DERMAL SCH (21:00)
[2018-01-06] MEDS: MONTELUKAST SODIUM 10 MG TAB PO SCH (21:55)
[2018-01-07] VITALS (7 sets, daily range): BP systolic 152–192; BP diastolic 67–93; PULSE 63–81; RESP 16–18; TEMP 97.8–98.7; O2SAT 93–98
[2018-01-07] MEDS: RESP: ALBUTEROL 2.5 MG/IPRATROPIUM 0.5 MG NEB (SCH) NEB ×5 (00:50→17:13)
[2018-01-07] MEDS: methylPREDNISolone SOD SUCC 40 MG/1 ML VIAL IV PUSH SCH ×3 (03:16→14:49)
[2018-01-07] MEDS: cloNIDine HCL 0.2 MG TAB PO SCH ×2 (05:12→14:48)
[2018-01-07] MEDS: HEPARIN SODIUM - SQ 10,000 UNITS/ML VIAL SQ SCH ×2 (05:15→14:49)
[2018-01-07] MEDS: SODIUM CHLORIDE 0.9% FLUSH 10 ML FLUSH IV FLUSH SCH (09:27)
[2018-01-07] MEDS: NICOTINE 21 MG/24 HR PATCH T-DERMAL SCH (09:28)
[2018-01-07] MEDS: POTASSIUM CHLORIDE 20 MEQ CONTROLLED RELEASE TAB PO SCH (09:29)
[2018-01-07] MEDS: METOCLOPRAMIDE HCL 10 MG TAB PO SCH ×3 (09:30→17:05)
[2018-01-07] MEDS: PARoxetine HCL 20 MG TAB PO SCH (09:30)
[2018-01-07] MEDS: INSULIN ASPART SUPPLEMENTAL SCALE SQ SCH ×3 (09:30→17:06)
[2018-01-07] MEDS: METOPROLOL TARTRATE 25 MG TAB PO SCH (09:30)
[2018-01-07] MEDS: PREGABALIN 100 MG CAP PO SCH (09:30)
[2018-01-07] MEDS: PRAVASTATIN SOD 10 MG TAB PO SCH (09:31)
[2018-01-07] MEDS ORDERED: METO50TA PO (12:56)
[2018-01-07] MEDS ORDERED: LACTTAB8 PO (12:56)
[2018-01-07] MEDS ORDERED: LEVA500T33 PO (12:56)
[2018-01-07] MEDS ORDERED: CLON.2 PO (12:56)
[2018-01-07] MEDS ORDERED: OXYGENDME NAS.CANULA (12:57)
[2018-01-07] MEDS ORDERED: PRED20 PO (12:59)
--- NOTE | 2018-01-07 13:02 | HHI.DS ---
Discharge Summary Admission Date Jan 05, 2018 at 15:30 Discharge Date: Jan 07, 2018 Admitting Diagnosis COPD exacerbation (1) COPD with acute exacerbation ICD Code: J44.1 - Chronic obstructive pulmonary disease with (acute) exacerbation Diagnosis: Principal (2) HLD (hyperlipidemia) ICD Code: E78.5 - Hyperlipidemia, unspecified Diagnosis: Secondary (3) Depression ICD Code: F32.9 - Major depressive disorder, single episode, unspecified Diagnosis: Secondary (4) Diabetes ICD Code: E11.9 - Type 2 diabetes mellitus without complications Diagnosis: Secondary (5) HTN (hypertension) ICD Code: I10 - Essential (primary) hypertension Diagnosis: Secondary (6) Tobacco abuse ICD Code: Z72.0 - Tobacco use Diagnosis: Secondary (7) UTI (urinary tract infection) ICD Code: N39.0 - Urinary tract infection, site not specified Diagnosis: Secondary (8) AMBROSE (acute kidney injury) ICD Code: N17.9 - Acute kidney failure, unspecified Diagnosis: Secondary Procedures None Brief History - From Admission 67 year old female with DM, COPD, tobacco abuse, HTN, and HLD presenting with shortness of breath, productive cough, and wheezing for the past four days. She denies fever, chills, rhinorrhea, congestion, nausea, vomiting, edema, hemoptysis, abdominal pain, or decreased appetite. She endorses some chest pain related to coughing attacks. She has had no recent travel or been exposed to sick contacts. She does not get the flu shot and she has never had a pneumonia vaccine. She saw her PCP two days ago who gave her a Z -pack. She states she had no improvement despite the antibiotic and regular nebulizer treatments prompting her to seek further evaluation. She was not given any steroids. She continues to smoke daily up to 1PPD and uses 2L O2 at night. She remained short of breath and wheezing despite a dose of Solumedrol and three DuoNeb treatments in the ED. CBC/BMP: 01/05/18 0246 01/06/18 1035 Significant Findings Laboratory Tests Test 01/04/18 13:41 01/04/18 22:20 01/05/18 02:46 01/06/18 10:35 Platelet Count 127 TH/MM3 (150-450) 123 TH/MM3 (150-450) Monocytes (%) (Auto) 9.5 % (0.0-8.0) Eosinophils (%) (Auto) 10.3 % (0.0-4.0) Eosinophils # (Auto) 0.8 TH/MM3 (0-0.4) Urine Turbidity HAZY (CLEAR) Urine Glucose (UA) 1000 mg/dL (NEG) Urine Nitrite POS (NEG) Urine Leukocyte Esterase MOD (NEG) Urine WBC 47 /hpf (0-5) Urine Bacteria MOD /hpf (NONE) Urine Mucus FEW /lpf (OCC) Red Blood Count 3.96 MIL/MM3 (4.00-5.30) Neutrophils (%) (Auto) 88.4 % (16.0-70.0) Lymphocytes # (Auto) 0.6 TH/MM3 (1.0-4.8) Blood Urea Nitrogen 24 MG/DL (7-18) 28 MG/DL (7-18) Creatinine 1.75 MG/DL (0.50-1.00) 1.37 MG/DL (0.50-1.00) Random Glucose 175 MG/DL (74-106) 155 MG/DL (74-106) Carbon Dioxide Level 33.0 MEQ/L (21.0-32.0) 32.9 MEQ/L (21.0-32.0) Estimat Glomerular Filtration Rate 35 ML/MIN (>89) 46 ML/MIN (>89) Troponin I LESS THAN 0.02 NG/ML PE at Discharge AAOx3 Diffuse bilateral expiratory wheezing. No rales or rhonchi auscultated. no edema in lower extremities S1S2 RRR, no MRG Hospital Course Mrs. Vidales is a 67-year-old female. She came in the hospital secondary to COPD exacerbation. Urinary tract infection is also discovered. With breathing treatments and steroids patient has had improvement. She says she is feeling mostly back to her regular baseline. She does use oxygen at home at night. Oxygen walk test is pending and it is expected that this patient will pass. She does not pass she will use oxygen during the day. At this point she is medically stable for discharge back to home after option walk test completed. Antibiotics and steroids provided at time of discharge. She also had hypertensive urgency while she was here and her Catapres has been increasing her metoprolol has been increased. Probiotics provided. Pt Condition on Discharge: Stable Discharge Disposition: Discharge Home Discharge Time: <= 30 minutes Discharge Instructions DIET: Follow Instructions for: As Tolerated, No Restrictions Activities you can perform: Regular-No Restrictions Follow up Referrals: PCP Follow-up - 2 Weeks New Medications: Lactobacillus Acidophilus (Lactobacillus Acidophilus) 1 Billion Cell Tab 1 TAB PO TIDAC for Nutritional Supplement, #30 TAB 0 Refills Levofloxacin (Levaquin) 500 Mg Tablet 500 MG PO EVERY OTHER DAY for Infection, #3 TAB 0 Refills Metoprolol Tartrate (Metoprolol Tartrate) 50 Mg Tab 50 MG PO BID for Blood Pressure Management, #60 TAB 0 Refills Oxygen (O2) (Oxygen (O2)) Device LITER DIMA.CANULA CONTINUOUS for Prevent Hypoxemia, #2 Oxygen Concentrator Portable Gaseous 2 L/min via Nasal Canula Continuous For 99 months Prednisone (Prednisone) 20 Mg Tab 20 MG PO BID for Inflammation, #4 TAB 0 Refills Clonidine (Catapres) 0.2 Mg Tab 0.2 MG PO Q8HR for Blood Pressure Management, #90 TAB Continued Medications: Albuterol 8.5 GM Inh (Proair Hfa 8.5 GM Inh) 90 Mcg/Act Aer 2 PUFF INH Q4-6H PRN for SHORTNESS OF BREATH, #1 INHALER 0 Refills 108 mcg/actuation Canagliflozin (Invokana) 300 Mg Tab 300 MG PO DAILY for Blood Sugar Management, #30 TAB 0 Refills Take before 1st meal of day. Fluticasone-Vilanterol Inh (Breo Ellipta Inh) 200-25 Mcg/Act Inh 1 PUFF INH DAILY, #1 INHALER 0 Refills Use daily at the same time. Furosemide (Furosemide) 40 Mg Tab 40 MG PO DAILY, #30 TAB 0 Refills Hydrocodone-Acetaminophen (Hydrocodone-Acetaminophen) 10-325 mg Tab 1 TAB PO TID PRN for PAIN, TAB 0 Refills Linagliptin (Tradjenta) 5 Mg Tab 5 MG PO DAILY for Blood Sugar Management, #30 TAB 0 Refills Metoclopramide (Metoclopramide) 5 Mg Tab 5 MG PO TIDAC, TAB 0 Refills Montelukast (Montelukast) 10 Mg Tab 10 MG PO HS, #30 TAB 0 Refills Paroxetine (Paroxetine) 20 Mg Tab 20 MG PO DAILY, #30 TAB 0 Refills Potassium Chloride ER (Potassium Chloride ER) 20 Meq Tab 20 MEQ PO DAILY for Electrolyte Replacement, #30 TAB 0 Refills Pregabalin (Lyrica) 100 Mg Cap 100 MG PO BID, #60 CAP 0 Refills Rosuvastatin (Rosuvastatin) 5 Mg Tab 5 MG PO DAILY for Cholesterol Management, #30 TAB 0 Refills Tiotropium Inh (Spiriva Handihaler) 18 Mcg Cap 18 MCG INH DAILY for COPD, #30 CAP 0 Refills 1 capsule = 18 mcg Discontinued Medications: Clonidine (Clonidine) 0.1 Mg Tab 0.1 MG PO BID for Blood Pressure Management, #60 TAB 0 Refills Metoprolol Tartrate (Metoprolol Tartrate) 25 Mg Tab 25 MG PO DAILY, #30 TAB 0 Refills Michael Cantu MD Jan 07, 2018 13:02
[2018-01-07] MEDS: TIOTROPIUM BROMIDE 18 MCG INH INH SCH (14:48)
[2018-01-07] MEDS: FLUTICASONE 200 MCG/VILANTEROL 25 MCG INHALER INH SCH (14:48)
[2018-01-07] MEDS: LEVOFLOXACIN 750 MG PREMIX INJ 150 ML IV SCH (14:49)
[2018-01-07] MEDS: hydrALAZINE HCL 25 MG TAB PO PRN (17:05)
== END 2018-01-07 19:05 | disposition home or self-care (01) | DRG 191 ==
LOC: NEPE 13:36 → NEDA 15:36 → NEPHCDU 17:53 → NEPGCP 17:54 → OBSVTOIN 01-05 15:30 → N04B 01-06 22:21
PROVIDERS: ADMIT Hospitalist; ATTEND Hospitalist
DX: J44.1 Chronic obstructive pulmonary disease with (acute) exacerbation (principal); I13.0 Hypertensive heart and chronic kidney disease with heart failure and stage 1 through stage 4 chronic kidney disease, or unspecified chronic kidney disease; N17.9 Acute kidney failure, unspecified; E11.22 Type 2 diabetes mellitus with diabetic chronic kidney disease; I50.9 Heart failure, unspecified; E11.42 Type 2 diabetes mellitus with diabetic polyneuropathy; N39.0 Urinary tract infection, site not specified; Z68.42 Body mass index [BMI] 45.0-49.9, adult; Z99.81 Dependence on supplemental oxygen; N18.3 Chronic kidney disease, stage 3 (moderate); F17.210 Nicotine dependence, cigarettes, uncomplicated; K21.9 Gastro-esophageal reflux disease without esophagitis; F32.9 Major depressive disorder, single episode, unspecified; M19.90 Unspecified osteoarthritis, unspecified site; E66.9 Obesity, unspecified; E78.5 Hyperlipidemia, unspecified; Z66 Do not resuscitate; I16.0 Hypertensive urgency; B96.1 Klebsiella pneumoniae [K. pneumoniae] as the cause of diseases classified elsewhere
CPT/HCPCS: 71045; 80048; 80053; 81001; 82550; 82948; 83735; 83880; 84484; 85025; 85610; 85730; 87077; 87086; 87186; 87804; 93005; 94618; 94640; 94664; 96374; G0378; J1644; J1815; J1956; J2920; J2930